=== PATIENT | male | born 1960 | race Caucasian/White ===

== ENCOUNTER 2020-03-22 11:59 | Emergency (ER) | payer OTHER, SELFPAY ==
[2020-03-22 13:07] VITALS: BP 146/73; PULSE 94; RESP 18; TEMP 36.9; O2SAT 96; BMI 34.0
--- NOTE | 2020-03-22 13:17 | CT_ITS ---
EXAMINATION: CT HEAD WITHOUT CONTRAST CT CERVICAL SPINE WITHOUT CONTRAST CLINICAL INFORMATION: Fall downstairs COMPARISON: None. TECHNIQUE: Multidetector CT imaging of the head and cervical spine was performed without the use of intravenous contrast. Multiplanar reformats are reviewed. DLP: 1266c mGy-cm. FINDINGS: There is no evidence of acute intracranial hemorrhage or territorial infarction. No abnormal mass effect or midline shift is seen. Pritchard to white matter differentiation is well preserved. No extra-axial fluid collections are identified. The ventricles are normal in size. There is no abnormal attenuation within the brain parenchyma. The osseous structures and soft tissues are normal. Mucus retention present within the bilateral maxillary sinuses. Atlantooccipital alignment is maintained. The vertebral bodies and posterior elements align normally. No acute fracture or subluxation. Vertebral body heights and intervertebral disc spaces are preserved. Small endplate ossified present from C5 through T1. In conjunction with uncovertebral hypertrophy, this leads to at least mild bilateral foraminal narrowing at C5-C6, to a greater extent C6-C7. The cervicomedullary junction and spinal cord are grossly unremarkable. The paraspinal soft tissues are unremarkable. The imaged lung apices are clear CT/CT head/brain wo con IMPRESSION: No acute intracranial pathology. No cervical spine fracture or subluxation.
--- NOTE | 2020-03-22 13:17 | CT_ITS ---
EXAMINATION: CT HEAD WITHOUT CONTRAST CT CERVICAL SPINE WITHOUT CONTRAST CLINICAL INFORMATION: Fall downstairs COMPARISON: None. TECHNIQUE: Multidetector CT imaging of the head and cervical spine was performed without the use of intravenous contrast. Multiplanar reformats are reviewed. DLP: 1266c mGy-cm. FINDINGS: There is no evidence of acute intracranial hemorrhage or territorial infarction. No abnormal mass effect or midline shift is seen. Pritchard to white matter differentiation is well preserved. No extra-axial fluid collections are identified. The ventricles are normal in size. There is no abnormal attenuation within the brain parenchyma. The osseous structures and soft tissues are normal. Mucus retention present within the bilateral maxillary sinuses. Atlantooccipital alignment is maintained. The vertebral bodies and posterior elements align normally. No acute fracture or subluxation. Vertebral body heights and intervertebral disc spaces are preserved. Small endplate ossified present from C5 through T1. In conjunction with uncovertebral hypertrophy, this leads to at least mild bilateral foraminal narrowing at C5-C6, to a greater extent C6-C7. The cervicomedullary junction and spinal cord are grossly unremarkable. The paraspinal soft tissues are unremarkable. The imaged lung apices are clear CT/CT cervical spine wo con IMPRESSION: No acute intracranial pathology. No cervical spine fracture or subluxation.
--- NOTE | 2020-03-22 13:18 | XR_ITS ---
EXAMINATION: XR KNEE, LEFT CLINICAL INFORMATION: Left knee fall COMPARISON: None TECHNIQUE: Four views of the left knee. FINDINGS: There are 2 screws with washers in place extending lateral to medial in the tibial plateau region. The hardware is intact without surrounding lucency. I do not see a residual fracture line There is mild arthrosis of the medial compartment manifested by marginal osteophytes. Trace joint effusion. No acute fracture. XR/XR knee LT 4V IMPRESSION: Postoperative changes. No acute fracture. Subtle joint effusion Mild arthrosis.
--- NOTE | 2020-03-22 14:32 | ED_ITS ---
HPI - Extremity Injury (Lower) General Chief Complaint: Extremity Problem Stated Complaint: Knee pain, fall Time Seen by Provider: 03/22/20 13:17 Source: patient Mode of arrival: ambulatory Limitations: no limitations History of Present Illness HPI Narrative: patient presents to the ED for left knee pain after falling down stairs while drinking. Patient states this occurred around 02:00. Patient states since incident denies any headache, dizziness, chest pain, shortness of breath, rectal bleeding, vomiting blood, abdominal pain, back pain, or swelling of lower extremity. Patient denied loss of consciousness. Related Data Previous Rx's Medication Instructions Recorded naproxen 500 mg PO BID PRN #20 tab 03/22/20 Allergies Allergy/AdvReac Type Severity Reaction Status Date / Time No Known Allergies Allergy Unverified 02/06/20 16:31 Review of Systems Review of Systems: Yes all other systems are reviewed and are negative Constitutional: Constitutional: Reports as per HPI and Reports no additional constitutional complaints Eyes: Eyes: Reports as per HPI and Reports no additional eye complaints ENT: Reports system reviewed and no additional complaints, except as documented and Reports as per HPI Cardiovascular: Cardiovascular: Reports as per HPI, Reports no additional cardiovascular complaints, Denies Abdominal Cramping after Meds and Denies Abdominal Distension Respiratory: Respiratory: Reports as per HPI, Reports no additional respiratory complaints, Denies no additional respiratory complaints and Denies change in phlegm color Gastrointestinal: Gastrointestinal: Reports as per HPI, Reports no additional gastrointestinal complaints, Denies abdominal pain, Denies belching and Denies melena Musculoskeletal: Musculoskeletal: Reports no additional musculoskeletal complaints and Reports as per HPI Comments: Left knee pain Neurologic: Reports system reviewed and no additional complaints, except as documented and Reports as per HPI Psychiatric: Psychiatric: Reports no additional psychiatric complaints and Reports as per HPI [facility] Social History Social History Advance Directives: Yes Advance Directives Information Provided: Yes Advance Directives on File: No Physical Exam Vital Signs: Vital Signs: Vital Signs Temp Pulse Resp BP Pulse Ox 03/22/20 13:07 98.4 F 94 18 146/73 H 96 Body Mass Index 34.0 Const: General: cooperative, healthy appearing, comfortable, no acute distress, well developed, alert, awake and Physically active Orientation/co nsciousness: oriented to person HENMT: Head: Yes normal to inspection, Yes No palpable skull fracture present, No normocephalic, Yes atraumatic, No abrasion, No Alaniz's sign, No contusion, No hematoma, No laceration, No occipital foramen tenderness, No palpable skull f racture, No raccoon eyes, No scalp tenderness and No periorbital ecchymosis Eyes: General: appearance normal, both eyes and all related structures Neck: Neck: Yes normal visual inspection, Yes full ROM, Yes no lymphadenopathy, Yes no meningeal signs and No tender Chest: Chest palpation & inspection: normal inspection of the chest, normal palpation of entire chest wall and no localized rib tenderness Resp: Effort & Inspection: normal respiratory effort and able to speak in complete sentences Cardio: Jugular venous distension: no JVD Heart sounds: S1 normal heart sound present and S2 normal heart sound present GI: Inspection: Yes normal to inspection, No abdominal wall ecchymosis, No Abdominal wall edema and No distended Palpation (GI): Soft to palpation, not firm, nontender, no guarding and not rigid : General: No CVA tenderness and Yes no CVA tenderness Back/Spine/Pelvis: Back: no CVA tenderness, No CVA tenderness and No back tenderness Skin: General skin exam: no rashes or lesions noted Trauma: no lacerations or abrasions Neuro: General: oriented to person, gait normal, no meningeal signs and CN's II-XI intact bilaterally Cranial nerves: Yes CN's II-XII intact bilaterally Extrem: Other: positive for left knee tenderness on palpation. Negative for any erythema, swelling, deformity. Right lower extremity is normal. Psych: Appearance: grossly normal, well kempt and not disheveled Course Course Course Narrative: Patient will have left lower extremity imaging and also head CT C-spine due to patient stating he was drinking and fell down the stairs. Reevaluation(s) Reevaluation #1: All imaging came back negative for any fractures or brain bleed. Patient is safe for discharge Time: 14:38 MDM - Extremity Injury (Lower) MDM Narrative Medical decision making narrative: knee contusion Discharge Plan Discharge Clinical Impression: Contusion of knee Patient Disposition: Elopement Instructions: Contusion in Adults (ED), Knee Pain (ED) Additional Instructions: return to the ED immediately for any swelling of knee, swelling of legs, chest pain, shortness of breath, abdominal pain, nausea, emesis redness, coughing up blood, headache, dizziness, rectal bleeding, bloody urine, vomiting blood, chest pain, shortness of breath, or any other concerning symptoms. Please follow-up with your PCP Prescriptions: New naproxen 500 mg tablet 500 mg PO BID PRN (Reason: pain) Qty: 20 RF: 0 Stand Alone Forms: Work/School Release Interventions: ED Discharge Assessment Last Done: 03/22/20 14:53 Discharge Date/Time: 03/22/20 14:54 Print Language: Australian
[2020-03-22] MEDS: Ketorolac Tromethamine 60 MG/2 ML VIAL IM (14:48)
== END 2020-03-22 14:54 | disposition left against medical advice (07) ==
PROVIDERS: Emergency Provider Emergency Medicine
DX: S80.02XA Contusion of left knee, initial encounter (principal); M25.562 Pain in left knee; M54.2 Cervicalgia; W10.9XXA Fall (on) (from) unspecified stairs and steps, initial encounter; Y93.9 Activity, unspecified; Y92.9 Unspecified place or not applicable; Y99.9 Unspecified external cause status
CPT/HCPCS: 70450; 72125; 73564; 96372; 99283; 99284; J1885

== ENCOUNTER 2020-03-23 12:57 | Outpatient (REF) | payer OTHER, SELFPAY ==
--- NOTE | 2020-03-23 13:01 | CT_ITS ---
EXAMINATION: CT CHEST SCREENING CLINICAL INFORMATION: Nicotine dependence. COMPARISON: CT chest 03/20/2019 TECHNIQUE: Multidetector volumetric CT imaging of the chest is performed without contrast using low dose technique. Additional 2D coronal and sagittal reformatted images and axial 3D maximum intensity projection (MIP) images are generated on the CT workstation. This CT examination was performed using dose optimization techniques as appropriate, variously including the following: *Automated exposure control *Adjustment of mA and/or kV according to patient size (this includes techniques or standardized protocols for targeted exams where dose is matched to indication/reason for exam; i.e. extremities or head) *Use of iterative reconstruction technique DLP: 60 mGy-cm FINDINGS: LUNGS: The lungs are well expanded and clear of acute pneumonic consolidation. There is a 2 mm nodule right upper lobe anterior segment, new. No additional nodules, mass or consolidation. No ground-glass density either. MEDIASTINUM: Heart size and the great vessels are normal caliber. Minimal atherosclerotic calcification of the thoracic arch is noted. Central trachea and the bronchi are widely patent. No abnormal size mediastinal or hilar lymph nodes seen. There are coronary artery calcifications present. PLEURA: There is no pleural effusion. No pleural mass or thickening. AXILLA: Small shotty lymph nodes are seen in the axilla. UPPER ABDOMEN: Visualized liver, spleen, pancreas, and bilateral adrenal glands are unremarkable. OSSEOUS STRUCTURES: No lytic or sclerotic process seen. CT/CT lung screening IMPRESSION: New 2 mm nodule right upper lobe anterior segment. ASSESSMENT: Lung-RADS category: 2 benign. RECOMMENDATION: Routine annual screening low-dose CT chest.
== END 2020-03-23 12:58 | disposition home or self-care (01) ==
LOC: HO.CT 12:57
PROVIDERS: Visit Provider Surgery
DX: Z12.2 Encounter for screening for malignant neoplasm of respiratory organs (principal); F17.210 Nicotine dependence, cigarettes, uncomplicated
CPT/HCPCS: 71250

== ENCOUNTER 2022-09-19 09:45 | Outpatient (REF) | payer OTHER, SELFPAY ==
--- NOTE | ~2022-09-19 | CT_ITS ---
EXAMINATION: CT CHEST SCREENING CLINICAL INFORMATION: Current smoker. 46 pack year history. COMPARISON: Previous chest CT most recent March 2020 TECHNIQUE: Multidetector volumetric CT imaging of the chest is performed without contrast using low dose technique. Additional 2D coronal and sagittal reformatted images and axial 3D maximum intensity projection (MIP) images are generated on the CT workstation. This CT examination was performed using dose optimization techniques as appropriate, variously including the following: *Automated exposure control *Adjustment of mA and/or kV according to patient size (this includes techniques or standardized protocols for targeted exams where dose is matched to indication/reason for exam; i.e. extremities or head) *Use of iterative reconstruction technique DLP: 93 mGy-cm FINDINGS: LUNGS: Mild emphysema. Increased peripheral attenuation and reticular changes in the medial right upper lobe adjacent to the mediastinum axial image 83 series 5. This is stable. Previously identified 2 mm anterior segment right upper lobe nodule not definitely appreciated. Secretions in the right mainstem bronchus. No endobronchial or endotracheal lesion. MEDIASTINUM: Small stable mediastinal lymph nodes. No enlarged lymph nodes. Normal heart size. No pericardial effusion. Normal caliber thoracic aorta. CORONARY ARTERY CALCIFICATION: Moderate PLEURA: There is no pleural effusion. No pleural mass or thickening. AXILLA: No lymphadenopathy. UPPER ABDOMEN: Unremarkable OSSEOUS STRUCTURES: Mild degenerative changes of the spine. CT/CT lung screening IMPRESSION: Emphysema. Stable increased peripheral or subpleural attenuation and reticular markings in the medial right upper lobe adjacent to the mediastinum. Previously identified 2 mm anterior right upper lobe nodule not appreciated. ASSESSMENT: Lung-RADS category 2: Benign RECOMMENDATION: Annual low-dose chest CT follow-up.
== END 2022-09-19 09:46 | disposition home or self-care (01) ==
LOC: HO.CT 09:45
PROVIDERS: Visit Provider Physician Assistant Medical
DX: Z12.2 Encounter for screening for malignant neoplasm of respiratory organs (principal); F17.210 Nicotine dependence, cigarettes, uncomplicated
CPT/HCPCS: 71271

== ENCOUNTER 2023-09-21 08:17 | Outpatient (REF) | payer OTHER, SELFPAY ==
[2023-09-21 11:34] LABS: MANUAL DIFF FLAG NO
[2023-09-21 11:39] LABS: Basophils Absolute Auto 0.1 X10*3/uL (0.0-0.2); Eosinophils Absolute Auto 0.4 X10*3/uL (0.0-0.4); Eosinophils Percent Auto 4.6 % (0-4); Hematocrit 44.8 % (42.0-52.0); Hemoglobin 14.3 g/dl (14.0-18.0); Imm Gran Abs Auto 0.02 X10*3/uL (0.00-0.03); Imm Gran Pct Auto 0.2 % (0.0-0.4); Lymphocytes Absolute Auto 3.2 X10*3/uL (1.2-4.9); Lymphocytes Percent Auto 38.4 % (20-40); Mean Corpuscular HGB Conc 31.9 g/dl (31.0-36.0); Mean Corpuscular Hemoglobin 29.5 pg (27.0-33.0); Mean Corpuscular Volume 92.4 fL (80.0-98.0); Mean Platelet Volume 12.3 fL (9.4-12.4); Monocytes Absolute Auto 0.6 X10*3/uL (0.1-1.2); Monocytes Percent Auto 7.8 % (2-11); Platelet Count 173 X10*3/uL (160-400); Red Blood Count 4.85 X10*6/uL (4.60-5.80); Red Cell Distribution Width 13.2 % (11.0-16.0); White Blood Count 8.2 X10*3/uL (4.8-10.8)
[2023-09-21 12:21] LABS: Alanine Aminotransferase 18 U/L (0-40); Alkaline Phosphatase 83 U/L (39-117); Anion Gap 13 (12-20); Aspartate Amino Transferase 18 U/L (5-37); Bilirubin Total 0.3 mg/dL (0.0-1.0); Blood Urea Nitrogen 11 mg/dL (9-16); Calcium 9.7 mg/dL (8.4-10.2); Carbon Dioxide 28 mmol/L (22-29); Chloride 106 mmol/L (96-108); Cholesterol 204 mg/dL (<200); Estimated Glomerular Filt Rate > 60; Glucose Random 101 mg/dL (60-115); HDL Cholesterol 32 mg/dL (>40); LDL Cholesterol Calculated 132 mg/dL (<100); Potassium 4.7 mmol/L (3.3-5.1); Sodium 142 mmol/L (135-145); Triglycerides 200 mg/dL (<150)
== END 2023-09-21 08:18 | disposition home or self-care (01) ==
LOC: HO.HHCL 08:17
PROVIDERS: Visit Provider Internal Medicine Geriatric Medicine
DX: R73.03 Prediabetes (principal); E78.00 Pure hypercholesterolemia, unspecified
CPT/HCPCS: 36415; 80053; 80061; 85025

== ENCOUNTER 2024-02-27 08:25 | Outpatient (REF) | payer OTHER, SELFPAY ==
[2024-02-27 12:19] LABS: Alanine Aminotransferase 18 U/L (0-40); Albumin Level 4.1 g/dL (3.5-5.0); Alkaline Phosphatase 82 U/L (39-117); Anion Gap 12 (12-20); Aspartate Amino Transferase 21 U/L (5-37); Bilirubin Total 0.3 mg/dL (0.0-1.0); Blood Urea Nitrogen 19 mg/dL (9-16); Carbon Dioxide 27 mmol/L (22-29); Chloride 108 mmol/L (96-108); Estimated Glomerular Filt Rate > 60; Glucose Random 109 mg/dL (60-115); Potassium 4.5 mmol/L (3.3-5.1); Sodium 142 mmol/L (135-145)
== END 2024-02-27 08:26 | disposition home or self-care (01) ==
LOC: HO.HHCL 08:25
PROVIDERS: Visit Provider Internal Medicine Geriatric Medicine
DX: R73.01 Impaired fasting glucose (principal)
CPT/HCPCS: 36415; 80053

== ENCOUNTER 2024-05-29 10:25 | Outpatient (AMB) | payer OTHER, SELFPAY ==
[2024-05-29 10:27] VITALS: BP 128/72; PULSE 80; O2SAT 96; BMI 28.6
--- NOTE | 2024-05-29 10:27 | MHC.OFFVIS ---
Vital Signs 05/29/24 10:27 Height 5 ft 9 in Weight 194 lb 0.108 oz BMI 28.6 BP 128/72 Blood Pressure Location Lt brachial Position Sitting Pulse 80 Pulse Source Pulse Oximeter Pulse Oximetry (%) 96 Oxygen Delivery Method Room Air Intake Visit Reasons: [place] scrn. R/S X1 Intake Note: NEW PATIENT Reason; [place] scrn Prior hx of colo/egd? w/ Dr. Rosen (2010) Concerns or questions? No significant concerns/questions. Transverse Abdominal Muscle Surgeon Required: Yes Transverse Abdominal Muscle Surgeon Services: Transverse Abdominal Muscle Surgeon Present Transverse Abdominal Muscle Surgeon Name: Darius Hennessy Information Interpreted: non-clinical & clinical Accompanied by: Self / Same As Patient Allergies No Known Allergies Allergy (Verified 05/29/24 10:28) HPI HPI [place] scrn. R/S X1: Details: 64 year old? male with past medical history of hyperlipidemia, nicotine dependence is here today for pre colonoscopy screening.? Patient was sent to us by his PCP.? Patient had colonoscopy in 2010, normal colonoscopy. However patient has a family history of CRC. Patient's mom was diagnosed with CRC.? Patient denies melena, hematochezia, unintentional weight loss or ribbon like stools. Patient denies any gastrointestinal symptoms in the past or at present.? ? Denies history of difficulty with sedation or anesthesia in the past.? Negative for history of sleep apnea.? Denies any history of cardiac, renal, pulmonary, or hepatic disease.?? No history of infectious? diseases like hepatitis A, B, C, HIV or tuberculosis.? Patient is not on any anticoagulation [facility] Medical History (Updated 05/29/24 @ 11:15 by Ciara Love, [facility]) Hyperlipidemia Nicotine dependence, cigarettes, uncomplicated Surgical History Hx of left knee surgery Hx of colonoscopy Family History Mother Alzheimer disease Colon cancer Social History Household Members: Spouse and Children Alcohol intake: current Alcohol intake frequency: a few times a week Patient Tobacco Use Status: Current everyday Tobacco user Tobacco use type: Cigarette Cigarettes Per Day: 10 Review of Systems Const Denies weight gain and Denies weight loss ENT Reports no additional complaints, Denies dysphagia and Denies odynophagia Card Reports no additional complaints Resp Reports no additional complaints GI Denies abdominal pain, Denies belching, Denies melena, Denies bloating, Denies change in bowel habits, Denies dysphagia, Denies excessive flatus, Denies dyspepsia, Denies heartburn, Denies diarrhea, Denies loose stools, Denies nausea, Denies odynophagia and Denies vomiting Reports no additional complaints Musc Reports no additional complaints Neuro Reports no additional complaints Psych Reports no additional complaints Endo Reports no additional complaints Physical Exam Vital Signs: Last Vital Signs Pulse 80 05/29/24 10:27 BP 128/72 05/29/24 10:27 Pulse Ox 96 05/29/24 10:27 Oxygen Delivery Method Room Air 05/29/24 10:27 BMI result Body Mass Index 28.6 Const General: healthy appearing, no acute distress and well developed Nutritional Appearance: well nourished Orientation/consciousness: patient oriented x3 Resp Effort & Inspection: normal respiratory effort, able to speak in complete sentences, no tracheal deviation and symmetric chest movement Auscultation: clear to auscultation bilaterally Cardio Rate: regular rate GI Inspection: Yes normal to inspection and No distended Palpation (GI): Soft to palpation, not firm, nontender and No hepatosplenomegaly present Auscultation: normal bowel sounds General: Yes no CVA tenderness Back/Spine/Pelvis Back: no CVA tenderness Skin General skin exam: elasticity normal, turgor normal and dry skin Neuro General: patient oriented x3 Psych Appearance: grossly normal Mental Status: mental status grossly normal Assessment & Plan Assessment & Plan (1) Screen for colon cancer: Code(s): Z12.11 - Encounter for screening for malignant neoplasm of colon Plan Patient denies any GI, cardiac or respiratory symptoms.? Denies any issues with anesthesia in the past.? Denies any history of sleep apnea.? No history infectious diseases in the past or present.? Not on any anticoagulation therapy.? Family history of CRC.? Patient denies melena, hematochezia, unintentional weight loss or ribbon like stools.? Discussed at length the pre-procedure,? prep, diet & medications as well as what to expect prior, during and after the procedure.?? Stressed the importance of good bowel prep.? Recommended the use of Vaseline or Calmoseptine OTC & baby wipes with bowel movements to promote comfort.? ?Patient verbalizes understanding and agrees to plan of care.? He was given the opportunity to ask questions and all questions answered.? We will see him after the procedure.? Medications: New bisacodyl (Dulcolax (bisacodyl)) take 4 tabs at noon the day before your colonoscopy 20 mg (4 x 5 mg) PO ONCE 1 day 4 tabs 0RF Z12.11 - Encounter for screening for malignant neoplasm of colon polyethylene glycol 3350 (Miralax) As directed by gastroenterology department at [facility] 238 grams PO ONCE 238 grams 0RF Z12.11 - Encounter for screening for malignant neoplasm of colon Coding Level of Care Code New Pt Level 3 (96097) Diagnoses Screen for colon cancer Z12.11 Time Spent (min) 40 Comment 30 minutes spent with patient and additional 10 minutes spent reviewing his records
== END 2024-05-29 12:49 | disposition home or self-care (01) ==
PROVIDERS: Visit Provider Nurse Practitioner Family
DX: Z01.818 Encounter for other preprocedural examination (principal); Z12.11 Encounter for screening for malignant neoplasm of colon; Z80.0 Family history of malignant neoplasm of digestive organs
CPT/HCPCS: 99202

== ENCOUNTER → 2024-05-29 10:25 | Outpatient (BNVA) | payer OTHER, SELFPAY | PROVIDERS: Visit Provider Nurse Practitioner Family | DX: Z12.11 Encounter for screening for malignant neoplasm of colon (principal) | CPT/HCPCS: 99202 ==

== ENCOUNTER 2024-06-18 08:09 | Outpatient (REF) | payer OTHER, SELFPAY ==
--- OUTSIDE RECORDS SUMMARY | 2024-06-18 08:16 | XMS_ITS | Clinical Summary ---
Author Organization [employer] Address [address] [place] [address] [address] [place] [address] Care Team Providers Care Radiology Scheduler Name Role Phone Name, Td CADE Primary Care Provider [phone] Allergies No known active allergies Medications mometasone (Elocon) 0.1 % ointment Apply topically Once per day. 45 g 1 4 10/11/19 25 Active atorvastatin (Lipitor) 20 MG tabletIndicatio ns:On statin therapy Take 1 tablet (20 mg) by mouth Once per day. 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 Encounters Date Type Department Care Team Description 05/17/2024 10:15 AM EST Office Visit [facility] [address] [place], [place] [phone] Name, MD Td Impaired fasting glucose (Primary Dx); On statin therapy; Healthcare maintenance; Tobacco use; Vaccination refused by patient 05/17/2024 Travel 05/14/2024 Telephone [facility] [address] [place], [place] [phone] Chanel Phillips MA Chart Prep from Last 3 Months Immunizations Name Administration Dates Next Due Hep A, Adult 09/18/2012 Hep B, adult 09/18/2012 INFLUENZA VACCINE QUADRIVALE NT RECOMBINANT PRESERVATIVE FREE RIV4 02/27/2020 Influenza, IIV3, injectable 04/01/2014 MMR 10/02/2012,10/02/2009 Pfizer Covid-19 Vaccine 12+ 07/21/2020 Pfizer Covid-19 Vaccine 12+ Bivalent 06/14/2022 Pneumococcal Conjugate PCV 20 08/23/2023 Pneumococcal Polysaccharide PPSV23 06/24/2009 TD (adult), 2 Lf tetanus tox oid, preservative free, adsorbed 11/12/2004 Tdap 08/23/2023,04/24/2013,09/18/2012 Zoster, Recombinant 03/08/2021,12/21/2020 Family History Medical History Relation Name Comments Colon cancer Mother Relation Name Status Comments Mother Social History Tobacco Use Types Packs/Day Years Used Date Smoking Tobacco: Every Day Cigarettes Passive Smoke Exposure: Current Smokeless Tobacco: Never Tobacco Cessation:Ready to Q uit: Not Asked; Counseling Given: Not Answered Alcohol Use Standard Drinks/Week Comments Yes 0 (1 standard drink = 0.6 oz pur e alcohol) social Depression Answer Date Recorded Patient Health Questionnaire-9 Score 0 09/27/2022 Housing Stability Answer Date Recorded What is your housing situation today? I have neeraj luna 09/29/[address] you li ve. Do you have problems with any of the following? None of the above 09/29/2023 Food Insecurity Answer Date Recorded Within the past 12 months, y ou worried that your food would run out before you got money to buy more: Never True 09/29/2023 Within the past 12 months,th e food you bought just didn't last and you didn't have enough money to get more: Never True 02/2024 Transportation Answer Date Recorded In the past 12 months, has l ack of transportation kept you from medical appts, meetings, work or from getting things needed for daily living? No 09/29/2023 Utilities Answer Date Recorded In the past 12 months, has t he electric, gas, oil or water company threatened to shut off services in your home? 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 file Not on hosea e Last Filed Vital Signs Vital Sign Reading Time Taken Comments Blood Pressure 139/82 05/17/2024 10:09 AM EST Pulse 90 05/17/2024 10:09 AM EST Temperature 36.9 ??C (98.4 ??F) 05/17/2024 10:[address] Respiratory Rate 18 05/17/2024 10:09 AM EST Oxygen Saturation 95% 02/06/2024 3:10 PM EDT Inhaled Oxygen Concentration - - Weight 85.9 kg (189 lb 6.4 oz) 05/17/2024 10:09 AM EST Height 167.6 cm (5' 6 ) 05/17/2024 10:09 AM EST Body Mass Index 30.57 05/17/2024 10:09 AM EST Plan of Treatment Health Maintenance Due Date Last Done Comments CT Colonography 1960 Colonoscopy 1960 Colorectal Cancer Screening 1960 FIT DNA/Cologuard 1960 FIT 1960 FOBT 1960 Sigmoidoscopy 1960 Alcohol/Substance Use Screening 1972 Hepatitis B Vaccines (2 of 3 - 19+ 3-dose series) 10/16/2012 09/18/2012 Diabetes: Hemoglobin A1C 11/26/2021 11/26/2020 Depression Screening 09/28/2023 09/27/2022, 09/28/19 23 COVID-19 Vaccine ( season) 2024 06/14/2022, 04/12/2021, 07/21/2020, Additional history exists Influenza Vaccine (#1) 2024 02/27/2020, 2013 SDOH Screening 09/28/2024 09/29/2023 Tobacco Screening 05/17/2025 05/17/2024 Lipid Panel 09/20/2028 09/21/2023, 03/0 06/2022, 11/26/2020 DTaP/Tdap/Td Vaccines (4 - Td or Tdap) 08/22/2033 08/23/2023, 04/24/2013, 09/18/2012, Additional history exists RSV Patients and Patients Aged 60 years or older (1 - 1-dose 75+ series) 2035 Hepatitis A Vaccines Aged Out 09/18/2012 No long er eligible based on patient's age to complete this topic HIV Screening Completed 11/26/2020 Hepatitis C Screening Completed 11/26/2020 Zoster Vaccines Completed 03/08/2021, 12/21/2020 Pneumococcal Vaccine: Pediatrics (0 to 5 Years) and At-Risk Patients (6 to 64 Years) Completed 08/23/2023, 06/24/2009 HIB Vaccines Aged Out No longer eligi ble based on patient's age to complete this topic HPV Vaccines Aged Out No longer eligi ble based on patient's age to complete this topic IPV Vaccines Aged Out No longer eligi ble based on patient's age to complete this topic Meningococcal Vaccine Aged Out No shelby matt eligible based on patient's age to complete this topic RSV under 20 months Aged Out No longe r eligible based on patient's age to complete this topic Rotavirus Vaccines Aged Out No longer eligible based on patient's age to complete this topic Procedures Procedure Name Priority Date/Time Associated Diagnosis Comments POCT GLUCOSE Routine 05/17/2024 10:18 AM EST Impaired fasting glucose LIPID PANEL, STANDARD Routine 09/21/2023 8:19 AM EDT Prediabetes High cholesterol ZZZ HISTORICAL HEPATITIS C AB W/REFL TO HCV RNA, QN, PCR Routine 11/26/2020 3:44 PM EDT HIV 1/2 ANTIGEN/ANTIBODY, FOURTH GENERATION W/RFL Routine 11/26/2020 3:44 PM EDT HEMOGLOBIN A1C Routine 11/26/2020 3:44 PM EDT from Last 3 Months or Most Recently Relevant to Health Maintenance Results * POCT Glucose (05/17/2024 10:18 AM EST) Glucose Blood, POC 104 60 - 200 mg/dL [employer] Media Lot # [id number] Lot# Expiration Date 168 Blood Capillary blood specimen / Unknown 05/17/2024 10:18 AM EST us Td Bautista MD POINT OF CARE TEST ENTER/EDIT OR DERABLES Final Result * (ABNORMAL) Lipid Panel, Standard (09/21/2023 8:19 AM EDT) Pathologist [facility] Triglycerides 200(H) <150 mg/dL [facility] Comment:Desirable Triglyceri de: less than 150 mg/dLBorderline High Triglyceride 150-199 mg/dLHigh Triglyceride: 200-499 mg/dLVery High Triglyceride: greater than or equal to 5OO mg/dL Cholesterol 204(H) <200 mg/dL [facility] Comment:Desirable Cholestero l: less than 200 mg/dLBorderline High Cholesterol: 200-239 mg/dLHigh Cholesterol: greater than 239 mg/dL LDL Cholesterol Calculated 132(H) <100 mg/dL [facility] Comment:Desirable LDL: less than 100 mg/dLNear Optimal/Above Optimal LDL: 110- 129 mg/dLBorderline High LDL: 130-159 mg/dLHigh LDL: 160-189 mg/dLVery High LDL: greater than or equal to 190 mg/dL HDL Cholesterol 32(L) >40 mg/dL [facility] Comment:Desirable HDL: great er than 40 mg/dL Note: This HDL assay may give artificially low results in patients with liver disease. Blood Venous blood specimen / Unknown 09/21/2023 8:19 AM EDT 09/21/2023 11:34 AM EDT us Td Bautista MD LAB BLOOD ORDERABLES Final Resul t [facility] [address] [place] [phone] * HEPATITIS C AB W/REFL TO HCV RNA, QN, PCR (11/26/2020 3:44 PM EDT) HEPATITIS C ANTIBODY NON-REACT ALYSSA NON-REACT ALYSSA [facility] INDEX 0.01 <1.00 [facility] Comment: ?? HCV antibody was non-reactive. There is no laboratory ?? evidence of HCV infection. ?? In most cases, no further action is required. However, if recent HCV exposure is suspected, a test for HCV RNA (test code 66102) is suggested. ?? For additional information please refer to http://[employer]/faq/FLB41x8 (This link is being provided for informational/ educational purposes only.) ?? 11/26/2020 3:44 PM EDT Taina Petersen MD HISTORICAL/NON ORDERABLE LABS Final Result Performing Organization Address City/State/[facility] Co de Phone Number [facility] [address] [place] [address], * HIV 1/2 ANTIGEN/ANTIBODY,FOURTH GENERATION W/RFL (11/26/2020 3:44 PM EDT) HIV-1/2 ANTIGEN AND ANTIBODIES, 4TH GENERATION W/ REFLEX NON-REACT ALYSSA NON-REACT ALYSSA [facility] Comment: HIV-1 antigen and HIV-1/HIV-2 antibodies were not detected. There is no laboratory evidence of HIV infection. ?? PLEASE NOTE: This information has been disclosed to you from records whose confidentiality may be protected by state law. ??If your state requires such protection, then the state law prohibits you from making any further disclosure of the information without the specific written consent of the person to whom it pertains, or as otherwise permitted by law. A general authorization for the release of medical or other information is NOT sufficient for this purpose. ? For additional information please refer to http://[employer]s/faq/RAP432 (This link is being provided for informational/ educational purposes only.) ? The performance of this assay has not been clinically validated in patients less than 2 years old. ?? 11/26/2020 3:44 PM EDT us Taina Petersen MD LAB BLOOD ORDERABLES Final Re sult Performing Organization Address [facility] Co de Phone Number [facility] [address] * (ABNORMAL) HEMOGLOBIN A1c (11/26/2020 3:44 PM EDT) Hemoglobin A1c 5.7(H) <5.7 % of total Hgb [facility] Comment: For someone without known diabetes, a hemoglobin ?? A1c value between 5.7% and 6.4% is consistent with prediabetes and should be confirmed with a ?? follow-up test. ?? For someone with known diabetes, a value <7% indicates that their diabetes is well controlled. A1c targets should be individualized based on duration of diabetes, age, comorbid conditions, and other considerations. ?? This assay result is consistent with an increased risk of diabetes. ?? Currently, no consensus exists regarding use of hemoglobin A1c for diagnosis of diabetes for children. ?? 11/26/2020 3:44 PM EDT Taina Petersen MD LAB BLOOD ORDERABLES Final Re sult Performing Organization Address [facility] de Phone Number [facility] [address] from Last 3 Months or Most Recently Relevant to Health Maintenance Insurance Care Teams Radiology Scheduler Relationship Specialty Start Date End Date Name, MD Td [address] [place] [id number] PCP - General Family Medicine 01/19/22
--- OUTSIDE RECORDS SUMMARY | 2024-06-18 08:16 | XMS_ITS | Encounter Summary ---
Author Organization [employer] Address [address] [place] [address] 7[address] [place] [address] Care Team Providers Care Manager General Name Role Phone Name, Td CADE Primary Care Provider [phone] Encounter Details Date Type Department Care Team ([facility] st Contact Info) Description 10/18/2022 Abstract [employer] Information [employer] [address] [place], [place] [phone] Name, MD Td [address] [place] [address] Social History Tobacco Use Types Packs/Day Years Used Date Smoking Tobacco: Every Day Cigarettes Passive Smoke Exposure: Current Smokeless Tobacco: Never Alcohol Use Standard Drinks/Week Comments Not Currently 0 (1 standard drink = 0.6 oz pur e alcohol) Depression Answer Date Recorded Patient Health Questionnaire-9 Score 0 09/27/2022 Depression Answer Date Recorded Patient Health Questionnaire-2 Score 0 09/27/2022 Sex and Gender Information Value Date Recorded Sex Assigned at Male 03/21/2022 10:15 AM EDT Legal Sex Male 10:15 AM EDT Gender Identity Male 03/21/2022 10:15 AM EDT Sexual Orientation Straight 03/21/2022 10 :15 AM EDT 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 No / Unsure 09/27/2022 10:08 AM EDT documented as of this encounter Plan of Treatment Not on file documented as of this encounter Visit Diagnoses Not on filedocumented in this encounter Additional Health Concerns Assessment Noted Time PHQ-9 Depression Total Score: 0 09/28/19 23 10:17 AM EDT documented as of this encounter Care Teams Manager General Relationship Specialty Start Date End Date Name, MD Td [address] [place] [address] PCP - General Family Medicine 01/19/22 documented as of this encounter
[2024-06-18 11:41] LABS: Cholesterol 155 mg/dL (<200); HDL Cholesterol 31 mg/dL (>40); LDL Cholesterol Calculated 91 mg/dL (<100); Triglycerides 168 mg/dL (<150)
== END 2024-06-18 08:10 | disposition home or self-care (01) ==
LOC: HO.HHCL 08:09
PROVIDERS: Visit Provider Internal Medicine Geriatric Medicine
DX: Z79.899 Other long term (current) drug therapy (principal)
CPT/HCPCS: 36415; 80061

== ENCOUNTER 2024-10-02 15:23 | Outpatient (REF) | payer OTHER, SELFPAY ==
--- NOTE | ~2024-10-02 | XR_ITS ---
EXAMINATION: XR SHOULDER, RIGHT CLINICAL INFORMATION: Shoulder pain for a month on and off. No history of trauma COMPARISON: None available. TECHNIQUE: AP external rotation, Grashey, scapular Y, and axillary views of the right shoulder. FINDINGS: Normal bone mineralization. No fracture, dislocation, or suspicious bone lesion. Normal alignment. The glenohumeral joint demonstrate early arthritic changes. The AC joint demonstrates early arthritic changes with predominantly superior surface spurs. There is a type II acromion. No undersurface spurring. The subacromial space is preserved. Remainder of the soft tissue and bony structures appear normal. XR/XR shoulder RT min 2V IMPRESSION: 1. No acute bony abnormality. 2. 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 Electronically signed by: Todd Balbuena MD 10/03/2024 08:52 AM EDT
--- NOTE | ~2024-10-02 | XR_ITS ---
EXAMINATION: XR CERVICAL SPINE CLINICAL INFORMATION: NECK PAIN, right sided with radiation to the hand and right shoulder. COMPARISON: CT C-spine 03/22/2020. Plain films of C-spine 07/24/2017. TECHNIQUE: 3 views of the cervical spine were obtained. FINDINGS: There is a minimal levoconvex scoliosis, possibly positional. There is a normal lordosis. The C7-T1 interspace is somewhat obscured by the patient's shoulder. There is no subluxation. There is no compression deformity, fracture, or evidence of subluxation. Normal facet alignment bilaterally with mild degenerative facet changes left greater than right. Mild degenerative disc changes present most notable C5-6 and C6-7. No prevertebral or paravertebral soft tissue abnormality. Lung apices clear. XR/XR cervical spine 3V IMPRESSION: Mild to moderate cervical spondylosis. No acute bony abnormalities. Electronically signed by: Todd Balbuena MD 10/03/2024 08:57 AM EDT
--- OUTSIDE RECORDS SUMMARY | 2024-10-02 15:26 | XMS_ITS | Encounter Summary ---
Author Organization [employer] Address [address] [facility] [address] [place] [address] Care Team Providers Care Lumber Scaler Name Role Phone Name, Td CADE Primary Care Provider [phone] Reason for Visit * Reason Onset Date Comments Chart Prep 10/01/2024 Encounter Details Date Type Department Care Team ([facility] st Contact Info) Description 10/01/2024 Telephone [facility] [address] [place] [address] Name, MD Td [address] [place] [address] Chart Prep Social History Tobacco Use Types Packs/Day Years Used Date Smoking Tobacco: Every Day Cigarettes Passive Smoke Exposure: Current Smokeless Tobacco: Never Alcohol Use Standard Drinks/Week Comments Yes 0 (1 standard drink = 0.6 oz pur e alcohol) social Depression Answer Date Recorded Patient Health Questionnaire-9 Score 2 10/02/2024 Patient Health Questionnaire-9 Score 2 10/02/2024 Last PHQ-9: Questionnaire Data Not on file 0 10/02/2024 Housing Stability Answer Date Recorded What is your housing situation today? I have neeraj luna 10/02/[address] you li ve. Do you have problems with any of the following? None of the above 10/02/2024 Food Insecurity Answer Date Recorded Within the past 12 months, y ou worried that your food would run out before you got money to buy more: Never True 10/02/2024 Within the past 12 months,th e food you bought just didn't last and you didn't have enough money to get more: Never True Transportation Answer Date Recorded In the past 12 months, has l ack of transportation kept you from medical appts, meetings, work or from getting things needed for daily living? No 10/02/2024 Utilities Answer Date Recorded In the past 12 months, has t he electric, gas, oil or water company threatened to shut off services in your home? 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 file Not on hosea e documented as of this encounter Miscellaneous Notes * Telephone Encounter - Jossie Mulligan MA - 10/01/2024 12:49 PM EDT Chart Prep Labs: done Images: not applicable Referrals: not applicable Vaccines due: Covid, Flu, and Hep B Screenings: colonoscopy Overdue care gaps: SBIRT, SDOH, PHQ-9, JAYDE-7, Oral health screening, and Disability screen documented in this encounter Plan of Treatment Not on file documented as of this encounter Visit Diagnoses Not on filedocumented in this encounter Additional Health Concerns Assessment Noted Time PHQ-9 Depression Total Score: 0 09/28/19 23 10:17 AM EDT documented as of this encounter Care Teams Lumber Scaler Relationship Specialty Start Date End Date Name, MD Td [address] [place] [address] PCP - General Family Medicine 01/19/22 documented as of this encounter
--- OUTSIDE RECORDS SUMMARY | 2024-10-02 15:26 | XMS_ITS | Encounter Summary ---
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 Question Answer Date of Assessment Author Patient Health Questionnaire-2 Score 0 10/02/2024 11:52 AM Osmany Laura MA * Little interest or pleasure in doing things Answer Date of Assessment Author Not at all 10/02/2024 11:52 AM Pratibha Laura MA * Feeling down, depressed, or hopeless Answer Date of Assessment Author Not at all 10/02/2024 11:52 AM Pratibha Laura MA * Trouble falling or staying asleep, or sleeping too much Answer Date of Assessment Author Several days 10/02/2024 11:52 AM Pratibha Laura MA * Feeling tired or having little energy Answer Date of Assessment Author Several days 10/02/2024 11:52 AM Pratibha Laura MA * Poor appetite or overeating Answer Date of Assessment Author Not at all 10/02/2024 11:52 AM Pratibha Laura MA * Feeling bad about yourself - or that you are a failure or have let yourself or your family down Answer Date of Assessment Author Not at all 10/02/2024 11:52 AM Pratibha Laura MA * Trouble concentrating on things, such as reading the newspaper or watching television Answer Date of Assessment Author Not at all 10/02/2024 11:52 AM Pratibha Laura MA * Moving or speaking so slowly that other people could have noticed? Or the opposite - being so fidgety or restless that you have been moving around a lot more than usual. Answer Date of Assessment Author Not at all 10/02/2024 11:52 AM Pratibha Laura MA * Thoughts that you would be better off or hurting yourself in some way Answer Date of Assessment Author Not at all 10/02/2024 11:52 AM Pratibha Laura MA * Patient Health Questionnaire-9 Score Answer Date of Assessment Author 2 10/02/2024 11:52 AM Pratibha Laura MA * How difficult have these problems made it for you to do your work, take care of things at home, or get along with other people? Answer Date of Assessment Author Not difficult at all 10/02/2024 11:52 AM Pratibha Patel MA * Over the last 2 weeks, how often have you been bothered by any of the following problems? Question Answer Date of Assessment Author Feeling nervous, anxious, or on edge 0 10/02/2024 11:52 AM Claire Laura MA Not being able to stop or control worrying 0 10/02/2024 11:52 AM Claire Laura MA Worrying too much about different things 0 10/02/2024 11:52 AM Claire Laura MA Trouble relaxing 0 10/02/2024 11:52 AM Pratibha Laura MA Being so restless that it is hard to sit still 0 10/02/2024 11:52 AM Claire Laura MA Becoming easily annoyed or irritable 0 10/02/2024 11:52 AM Claire Laura MA Feeling afraid as if something awful might happen 0 10/02/2024 11:52 AM Pratibha Tee MA JAYDE-7 Total Score 0 10/02/2024 11:52 AM Pratibha Laura MA documented as of this encounter Plan of Treatment Not on file documented as of this encounter Visit Diagnoses Not on filedocumented in this encounter Additional Health Concerns Assessment Noted Time PHQ-9 Depression Total Score: 2 10/03/19 25 11:52 AM EDT documented as of this encounter Care Teams Store Assistant Relationship Specialty Start Date End Date Name, MD Td [address] [place] [address] PCP - General Family Medicine 01/19/22 documented as of this encounter
--- OUTSIDE RECORDS SUMMARY | 2024-10-02 15:26 | XMS_ITS | Encounter Summary ---
Author Organization [employer] Address [address] [facility] 7t [place] [address] Care Team Providers Care Road Design Draftsperson Name Role Phone Name, Td CADE Primary Care Provider [phone] Reason for Visit * Reason Comments Follow-up Encounter Details Date Type Department Care Team ([facility] st Contact Info) Description 10/02/2024 11:00 AM EDT Office Visit [facility] [address] [place] [address] Name, MD Td [address] [place] [address] Neck pain, chronic (Primary Dx); Chronic right shoulder pain; Arm pain, superior, right; High cholesterol; Tobacco use Social History Tobacco Use Types Packs/Day Years [...] Industry Job Start Date Job End Date [employer] Not on file Not on 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 file Not on file Not on hosea e documented as of this encounter Last Filed Vital Signs Vital Sign Reading Time Taken Comments Blood Pressure 135/76 10/02/2024 11:11 AM EDT Pulse 82 10/02/2024 11:11 AM EDT Temperature 36.7 ??C (98 ??F) 10/02/2024 11:11 AM EDT Respiratory Rate 14 10/02/2024 11:11 AM EDT Oxygen Saturation 94% 10/02/2024 11:11 AM EDT Inhaled Oxygen Concentration - - Weight 85.5 kg (188 lb 9.6 oz) 10/02/2024 11:11 AM EDT Height 172.7 cm (5' 8 ) 10/02/2024 11:11 AM EDT Body Mass Index 28.68 10/02/2024 11:11 AM EDT documented in this encounter Functional Status * Over the past 2 weeks, how often have you been bothered by any of the following problems? Question Answer Date of Assessment Author Patient Health Questionnaire-2 Score 0 10/02/2024 11:52 AM EDT Osmany Mckeon MA * Little interest or pleasure in [...] or on edge 0 10/02/2024 11:52 AM EDT Claire Mckeon MA Not being able to stop or control worrying 0 10/02/2024 11:52 AM EDT Claire Mckeon MA Worrying too much about different things 0 10/02/2024 11:52 AM EDT Claire Mckeon MA Trouble relaxing 0 10/02/2024 11:52 AM EDT Pratibha Mckeon MA Being so restless that it is hard to sit still 0 10/02/2024 11:52 AM FAHADT Claire Mckeon MA Becoming easily annoyed or irritable 0 10/02/2024 11:52 AM EDT Claire Mckeon MA Feeling afraid as if something awful might happen 0 10/02/2024 11:52 AM EDT Pratibha Rodriguez MA JAYDE-7 Total Score 0 10/02/2024 11:52 AM EDT Pratibha Mckeon MA documented as of this encounter Progress Notes * Td Bautista MD - 10/02/2024 11:00 AM EDT Images from the original note were not included. Subjective Patient ID: Jos Bosch is a 64 y.o. male who presents for Follow-up. Patient comes for a follow-up visit. He is complaining of about a month of pain. Pain is located inthe right neck and right shoulder area. He describes some radiation of the pain to the upper right arm and right occipital head. He does not have any arm weakness. No history of trauma. No limitation in the range of motion of the right shoulder. 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 He tells me he feels the pain mostly when he is at rest at home. He continues smoking cigarettes but is trying to cut down. He has not gone for the low radiation CTscan of the chest yet. He saw GI and has upcoming appointment for colonoscopy. Recent blood work shows significant improvement of his cholesterol since he started using his atorvastatin regularly. Review of Systems Constitutional: Negative for chills, fatigue and fever. HENT: Negative for sore throat. Respiratory: Negative for cough, chest tightness and shortness of breath. Cardiovascular: Negative for chest pain, palpitations and leg swelling. Gastrointestinal: Negative for abdominal pain and blood in stool. Musculoskeletal: See HPI Visit Vitals BP 135/76 (BP Location: Left arm, Patient Position: Sitting, BP Cuff Size: Adult) Pulse 82 Temp 98 ??F (36.7 ??C) (Temporal) Resp 14 Ht 5' 8 (1.727 m) Wt 188 lb 9.6 oz (85.5 kg) SpO2 94% BMI 28.68 kg/m?? Smoking Status Every Day BSA 2.03 m?? Objective Physical Exam Constitutional: Appearance: Normal appearance. Cardiovascular: Rate and Rhythm: Normal rate and regular rhythm. Heart sounds: No murmur heard. Pulmonary: Effort: Pulmonary effort is normal. No respiratory distress. Breath sounds: No wheezing, rhonchi or rales. Abdominal: Palpations: Abdomen is soft. Tenderness: There is no abdominal tenderness. Musculoskeletal: Right lower leg: No edema. Left lower leg: No edema. Comments: No swelling of the right shoulder. He did not have any pain with rotation or flexion of the neck. He described mild discomfort when raising the right arm above the head. Range of motion of the right shoulder was normal. Neurological: Mental Status: He is alert. ntains abnormal data Lipid Panel, Standard Order: [id number] Status: Final result Dx: On statin therapy Test Result Released: No (inaccessible in [facility]) 0 Result Notes View Follow-Up Encounter 1 Topic Component Ref Range & Units (hover) 3 mo ago 1 yr ago 2 yr ago 3 yr ago Triglycerides 168 High 200 High CM 198 High 432 High CM Comment: Desirable Triglyceride: less than 150 mg/dLBorderline High Triglyceride 150-199 mg/dLHigh Triglyceride: 200-499 mg/dLVery High Triglyceride: greater than or equal to 5OO mg/dL Cholesterol 155 204 High CM Comment: Desirable Cholesterol: less than 200 mg/dLBorderline High Cholesterol: 200-239 mg/dLHigh Cholesterol: greater than 239 mg/dL LDL Cholesterol Calculated 91 132 High CM Comment: Desirable LDL: less than 100 mg/dLNear Optimal/Above Optimal LDL: 110- 129 mg/dLBorderline High LDL: 130-159 mg/dLHigh LDL: 160-189 mg/dLVery High LDL: greater than or equal to 190 mg/dL HDL Cholesterol 31 Low 32 Low CM 33 Low R 28 Low R Comment: Desirable HDL: greater than 40 mg/dL Note: This HDL ass 0 Result Notes Component Ref Range & Units (hover) 7 mo ago 1 yr ago 2 yr ago 3 yr ago Sodium 142 142 140 R Potassium 4.5 4.7 5.1 R Chloride 108 106 105 R Carbon Dioxide 27 28 29 R Anion Gap 12 13 Urea Nitrogen (BUN) 19 High 11 20 R 24 R Creatinine, Serum 0.87 0.86 1.00 R Estimated Glomerular Filt Rate >60 >60 CM Comment: NOTE: For -[place] individuals, multiply the result by 1.210.Chronic Kidney Disease: Estimated GFR < 60 mL/min/[id number] Kidney Disease: Estimated GFR < 15 mL/min/1.73m2 Glucose 109 101 109 High R, CM Calcium 9.0 9.7 9.5 R Bilirubin, Total 0.3 0.3 0.3 R Aspartate Amino Transferase 21 18 16 R Alanine Aminotransferase 18 18 15 R 17 R Total Protein 7.0 7.0 Albumin Level 4.1 4.0 Alkaline Phosphatase 82 83 Lab Results Component Value Date WBC 8.2 09/21/2023 HGB 14.3 09/21/2023 HCT 44.8 09/21/2023 MCV 92.4 09/21/2023 PLT 173 09/21/2023 Assessment/Plan Diagnoses and all orders for this visit: Neck pain, chronic Comments: My differential is pain related to cervical spine DJD or related to right shoulder pathology like DJD or some form of tendinitis. I recommended evaluation with x-rays of the affected area. Trial of Celebrex as needed. I suggested physical therapy but he does not have the time. Further recommendation based on the results and response to the medication. Orders: - celecoxib (CeleBREX) 200 MG capsule; Take 1 capsule (200 mg) by mouth if needed in the morning and at bedtime for mild pain or moderate pain for up to 20 days. - XR CERVICAL SPINE 3V; Future Chronic right shoulder pain - celecoxib (CeleBREX) 200 MG capsule; Take 1 capsule (200 mg) by mouth if needed in the morning and at bedtime for mild pain or moderate pain for up to 20 days. - XR Shoulder 2+ Views Right; Future Arm pain, superior, right - celecoxib (CeleBREX) 200 MG capsule; Take 1 capsule (200 mg) by mouth if needed in the morning and at bedtime for mild pain or moderate pain for up to 20 days. High cholesterol Comments: Continue statin. Tobacco use Comments: He is recommended to continue his efforts to quit smoking. He is encouraged to reschedule his appointment for low radiation CT scan of the chest. documented in this encounter Plan of Treatment Scheduled Orders Name Type Priority Associated Diagnoses Orde r Schedule XR CERVICAL SPINE 3V Imaging Routine Neck pain, chronic Expected: 10/02/2024, Expires: 10/02/2025 XR Shoulder 2+ Views Right Imaging Routine Chronic right shoulder pain Expected: 10/02/2024, Expires: 10/02/2025 documented as of this encounter Visit Diagnoses Diagnosis Neck pain, chronic- Primary Chronic right shoulder pain Pain in joint, shoulder region Arm pain, superior, right High cholesterol Pure hypercholesterolemia Tobacco use documented in this encounter Additional Health Concerns Assessment Noted Time PHQ-9 Depression Total Score: 2 10/03/19 25 11:52 AM EDT documented as of this encounter Care Teams Road Design Draftsperson Relationship Specialty Start Date End Date NameTd MD [address] [place] [address] PCP - General Family Medicine 01/19/22 documented as of this encounter
--- OUTSIDE RECORDS SUMMARY | 2024-10-02 15:26 | XMS_ITS | Clinical Summary ---
Author Organization [employer] Address [address] [facility] 7t [place] [address] Care Team Providers Care Justice [employer] Peace Name Role Phone Name, Td CADE Primary Care Provider [phone] Allergies No known active allergies Medications mometasone (Elocon) 0.1 % ointment Apply topically Once per day. 45 g 1 4 10/11/19 25 Active atorvastatin (Lipitor) 20 MG tabletIndicatio ns:On statin therapy Take 1 tablet (20 mg) by mouth Once per day. 30 tablet 11 4 05/17/20 25 Active acetaminophen (Tylenol) 500 MG tablet Take 2 tablets (1,000 mg) by mouth every 6 (six) hours if needed for moderate pain or fever for up to 40 doses. 50 tablet 5 Active nicotine polacrilex (Commit) 2 MG lozenge Dissolve 1 lozenge (2 mg) in the mouth if needed for smoking cessation. 100 each 5 Active nicotine (Nicoderm CQ) 7 MG/24HR patch Place 1 patch on the skin 1 (one) time each day at the same time. 14 patch 5 Active nicotine (Nicoderm CQ) 14 MG/24HR patch Place 1 patch on the skin 1 (one) time each day at the same time. 42 patch 5 Active celecoxib (CeleBREX) 200 MG capsuleIndicati ons:Neck pain, chronic,Chronic right shoulder pain,Arm pain, superior, right Take 1 capsule (200 mg) by mouth if needed in the morning and at bedtime for mild pain or moderate pain for up to 20 days. 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 Encounters Date Type Department Care Team Description 10/02/2024 11:00 AM EDT Office Visit [facility] MED[facility] [address] [place] [phone] Td Bautista MD Neck pain, chronic (Primary Dx); Chronic right shoulder pain; Arm pain, superior, right; High cholesterol; Tobacco use 10/02/2024 Travel 10/01/2024 Telephone [facility] MED[facility]INE [address] [place] [phone] Td Bautista MD Chart Prep 07/09/2024 9:20 AM EST Office Visit [facility] [address] [place] [phone] Saulo Duffy MD Influenza-like symptoms (Primary Dx); Tobacco dependence; Viral URI from Last 3 Months Immunizations Immunization Administration Dates Next Due Hep A, Adult [...] Industry Job Start Date Job End Date [employer] Not on file Not on file Not [...] Mass Index 28.68 10/02/2024 11:11 AM EDT Plan of Treatment Health Maintenance Due Date Last Done Comments CT Colonography 1960 Colonoscopy 1960 Colorectal Cancer Screening 1960 FIT DNA/Cologuard 1960 FIT 1960 FOBT 1960 Sigmoidoscopy 1960 Hepatitis B Vaccines (2 of 3 - 19+ 3-dose series) 10/16/2012 09/18/2012 COVID-19 Vaccine ( season) 2024 06/14/2022, 04/12/2021, 07/21/2020, Additional history exists Influenza Vaccine (#1) 2024 02/27/2020, 2013 Alcohol/Substance Use Screening 10/02/2025 10/02/2024 Depression Screening 10/02/2025 10/02/2024, 10/03/19 25 SDOH Screening 10/02/2025 10/02/2024 Tobacco Screening 10/02/2025 10/02/2024 Lipid Panel 06/18/2029 06/18/2024, 05/0 06/2023, 07/21/2022, Additional history exists DTaP/Tdap/Td Vaccines (4 - Td or Tdap) 08/22/2033 08/23/2023, 04/24/2013, 09/18/2012, Additional history exists RSV Patients and Patients Aged 60 years or older (1 - 1-dose 75+ series) 2035 Hepatitis A Vaccines Aged Out 09/18/2012 No long er eligible based on patient's age to complete this topic HIV Screening Completed 11/26/2020 Hepatitis C Screening Completed 11/26/2020 Zoster Vaccines Completed 03/08/2021, 12/21/2020 Pneumococcal Vaccine: 50+ Years Completed 08/23/2023, 06/24/2009 HIB Vaccines Aged Out No longer eligi ble based on patient's age to complete this topic HPV Vaccines Aged Out No longer eligi ble based on patient's age to complete this topic IPV Vaccines Aged Out No longer eligi ble based on patient's age to complete this topic Meningococcal B Vaccine Aged Out No l onger eligible based on patient's age to complete [...] Name Priority Date/Time Associated Diagnosis Comments POCT INFLUENZA B (ID NOW RAPID MOLECULAR) Routine 07/09/2024 9:10 AM EST Viral URI POCT INFLUENZA A (ID NOW RAPID MOLECULAR) Routine 07/09/2024 9:10 AM EST Viral URI POCT RAPID STREP A Routine 07/09/2024 9: 10 AM EST Viral URI POCT RAPID COVID ANTIGEN Routine 07/09/2024 9:10 AM EST Viral URI LIPID PANEL, STANDARD Routine 06/18/2024 8:11 AM EST On statin therapy ZZZ HISTORICAL HEPATITIS C AB W/REFL TO HCV RNA, QN, PCR Routine 11/26/2020 3:44 PM EDT HIV 1/2 ANTIGEN/ANTIBODY, FOURTH GENERATION W/RFL Routine 11/26/2020 3:44 PM EDT from Last 3 Months or Most Recently Relevant to Health Maintenance Results * Influenza B (ID NOW Rapid Molecular) (07/09/2024 9:10 AM EST) Influenza B Negative Negative, Indeterminate [facility] Swab 07/09/2024 9:10 AM EST us Saulo Duffy MD POINT OF CARE TEST ENTER/EDIT OR DERABLES Final Result Performing Organization Address [facility] de Phone Number [facility] [address] [place] [phone] * Influenza A (ID NOW Rapid Molecular) (07/09/2024 9:10 AM EST) [facility] Influenza A Negative Negative, Indeterminate [facility] Swab 07/09/2024 9:10 AM EST us Saulo Duffy MD POINT OF CARE TEST ENTER/EDIT OR DERABLES Final Result Performing Organization Address [facility] Number [facility] [address] [place] [phone] * POCT Rapid COVID Ag (07/09/2024 9:10 AM EST) [facility] Rapid COVID Ag Negative [facility] Swab 07/09/2024 9:10 AM EST us Saulo Duffy MD POINT OF CARE TEST ENTER/EDIT OR DERABLES Final Result Performing Organization Address [facility] Phone Number [facility] [address] [place] [phone] * POCT rapid strep A manually resulted (07/09/2024 9:10 AM EST) [facility] Rapid Strep A Screen Negative Negative, None Detected [facility] Swab 07/09/2024 9:10 AM EST us Saulo Duffy MD POINT OF CARE TEST ENTER/EDIT OR DERABLES Final Result Performing Organization Address [facility] Number [facility] [address] [place] [phone] * (ABNORMAL) Lipid Panel, Standard (06/18/2024 8:11 AM EST) [facility] Triglycerides 168(H) <150 mg/dL [facility] Comment:Desirable Triglyceri de: less than 150 mg/dLBorderline High Triglyceride 150-199 mg/dLHigh Triglyceride: 200-499 mg/dLVery High Triglyceride: greater than or equal to 5OO mg/dL Cholesterol 155 <200 mg/dL [facility] Comment:Desirable Cholestero l: less than 200 mg/dLBorderline High Cholesterol: 200-239 mg/dLHigh Cholesterol: greater than 239 mg/dL LDL Cholesterol Calculated 91 <100 mg/dL [facility] Comment:Desirable LDL: less than 100 mg/dLNear Optimal/Above Optimal LDL: 110- 129 mg/dLBorderline High LDL: 130-159 mg/dLHigh LDL: 160-189 mg/dLVery High LDL: greater than or equal to 190 mg/dL HDL Cholesterol 31(L) >40 mg/dL [facility] Comment:Desirable HDL: great er than 40 mg/dL Note: This HDL assay may give artificially low results in patients with liver disease. Blood Venous blood specimen / Unknown 06/18/2024 8:11 AM EST 06/18/2024 11:07 AM EST us Td Bautista MD LAB BLOOD ORDERABLES Final Resul t [facility] [address] [place] [phone] * HEPATITIS C AB W/REFL TO HCV RNA, QN, PCR (11/26/2020 3:44 PM EDT) HEPATITIS C ANTIBODY NON-REACT ALYSSA NON-REACT ALYSSA [facility] INDEX 0.01 <1.00 [facility] Comment: ?? HCV antibody was non-reactive. There is no laboratory ?? evidence of HCV infection. ?? In most cases, no further action is required. However, if recent HCV exposure is suspected, a test for HCV RNA (test code 19008) is suggested. ?? For additional information please refer to http://education.InstaMed/faq/QBF13r2 (This link is being provided for informational/ educational purposes only.) ?? 11/26/2020 3:44 PM EDT Taina Petersen MD HISTORICAL/NON ORDERABLE LABS Final Result Performing Organization Address [facility] de Phone Number [facility] [address] * HIV 1/2 ANTIGEN/ANTIBODY,FOURTH GENERATION W/RFL (11/26/2020 3:44 PM EDT) HIV-1/2 ANTIGEN AND ANTIBODIES, 4TH GENERATION W/ REFLEX NON-REACT ALYSSA NON-REACT ALYSSA [facility] Comment: HIV-1 antigen and HIV-1/HIV-2 [...] ? For additional information please refer to http://education.[employer]/faq/LYD678 (This link is being provided for informational/ educational purposes only.) ? The performance of this assay has not been clinically validated in patients less than 2 years old. ?? 11/26/2020 3:44 PM EDT us Taina Petersen MD LAB BLOOD ORDERABLES Final Re sult Performing Organization Address [facility] de Phone Number [facility] [address] from Last 3 Months or Most Recently Relevant to Health Maintenance Insurance [facility] Care Teams Justice [employer] Relationship Specialty Start Date End Date Name, MD Td [address] [place] [phone] PCP - General Family Medicine 01/19/22
--- OUTSIDE RECORDS SUMMARY | 2024-10-02 15:27 | XMS_ITS | Encounter Summary ---
Author Organization [employer] Address [address] [facility] [address] [place] [address] Care Team Providers Care Advanced Practice Nurse Psychotherapist Name Role Phone Name, Td CADE Primary Care Provider [phone] Encounter Details Date Type Department Care Team ([facility] st Contact Info) Description 10/18/2022 Abstract [employer] Information Management [address] [place], [place] [phone] Name, MD Td [address] [place] [address] Social History Tobacco Use Types Packs/Day Years [...] Industry Job Start Date Job End Date [employer] Not on file Not on file Not [...] documented as of this encounter Care Teams Advanced Practice Nurse Psychotherapist Relationship Specialty Start Date End Date Name, MD Td [address] [place] [address] PCP - General Family Medicine 01/19/22 documented as of this encounter
== END 2024-10-02 15:24 | disposition home or self-care (01) ==
LOC: HO.XRAY 15:23
PROVIDERS: PCP Internal Medicine Geriatric Medicine; Visit Provider Internal Medicine Geriatric Medicine
DX: M54.2 Cervicalgia (principal); M25.511 Pain in right shoulder; G89.29 Other chronic pain
CPT/HCPCS: 72040; 73030

== ENCOUNTER → 2024-10-02 15:28 | Outpatient (BNV) | payer OTHER, SELFPAY | PROVIDERS: PCP Internal Medicine Geriatric Medicine; Visit Provider Radiology Diagnostic Radiology | DX: M54.2 Cervicalgia (principal); M25.511 Pain in right shoulder | CPT/HCPCS: 72040; 73030 ==

== ENCOUNTER 2024-11-14 10:51 | Outpatient (REF) | payer OTHER, SELFPAY ==
--- OUTSIDE RECORDS SUMMARY | 2024-11-14 12:52 | XMS_ITS | Clinical Summary ---
Author Organization [employer] Address [address] [facility] [address] [place] [address] Care Team Providers Care Director Of Fundraising Name Role Phone Name, Td CADE Primary Care Provider [phone] Allergies No known active allergies Medications atorvastatin (Lipitor) 20 MG tabletIndicati ons:On statin therapy Take 1 tablet (20 mg) by mouth Once per day. 30 tablet 11 05/17/20 24 025 Active nicotine (Nicoderm CQ) 7 MG/24HR patch Place 1 patch on the skin 1 (one) time each day at the same time. 14 patch 07/09/19 25 Active nicotine (Nicoderm CQ) 14 MG/24HR patch Place 1 patch on the skin 1 (one) time each day at the same time. 42 patch 07/09/19 25 Active acetaminophen (Tylenol) 500 MG tablet Take 2 tablets (1,000 mg) by mouth every 6 (six) hours if needed for moderate pain or fever for up to 40 doses. 50 tablet 10/26/19 25 Active nicotine polacrilex (Commit) 2 MG lozenge Dissolve 1 lozenge (2 mg) in the mouth if needed for smoking cessation. 100 lozenge 10/26/19 25 025 Active celecoxib (CeleBREX) 200 MG capsuleIndicat ions:Neck pain, chronic,Chroni c right shoulder pain,Arm pain, superior, right Take 1 capsule (200 mg) by mouth if needed in the morning and at bedtime for mild pain or moderate pain for up to 20 days. 40 capsule 10/26/19 25 025 Active acetaminophen (Tylenol) 500 MG tablet Take 2 tablets (1,000 mg) by mouth every 6 (six) hours if needed for moderate pain or fever for up to 40 doses. 50 tablet 07/09/19 25 025 Discontinued(Re order (will not trigger notification to Pharmacy)) nicotine polacrilex (Commit) 2 MG lozenge Dissolve 1 lozenge (2 mg) in the mouth if needed for smoking cessation. 100 each 07/09/19 25 025 Discontinued(Re order (will not trigger notification to Pharmacy)) celecoxib (CeleBREX) 200 MG capsuleIndicat ions:Neck pain, chronic,Chroni c right shoulder pain,Arm pain, superior, right Take 1 capsule (200 mg) by mouth if needed in the morning and at bedtime for mild pain or moderate pain for up to 20 days. 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 Encounters Date Type Department Care Team Description 11/14/2024 10:00 AM EDT Office Visit [facility] [address] [place] [phone] Shahla Driscoll MD Dizziness on standing (Primary Dx); Black stools 11/14/2024 Travel 10/25/2024 Telephone [facility] [address] [place] [phone] Pratibha Mckeon MA december recalls 10/25/2024 Refill [facility] [address] [place], [place] [phone] Td Bautista MD Neck pain, chronic; Chronic right shoulder pain; Arm pain, superior, right 10/02/2024 11:00 AM EDT Office Visit [facility] [address] [place] [address] [phone] Td Bautista MD Neck pain, chronic (Primary Dx); Chronic right shoulder pain; Arm pain, superior, right; High cholesterol; Tobacco use 10/02/2024 Travel 10/01/2024 Telephone [facility] [address] [place] [address] Name, MD Td Chart Prep from Last 3 Months Immunizations Immunization Administration [...] your housing situation today? 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 Not on file Not on hosea e Last Filed Vital Signs Vital Sign Reading Time Taken Comments Blood Pressure 102/61 11/14/2024 10:07 AM EDT Pulse 98 11/14/2024 10:07 AM EDT Temperature 36.8 C (98.2 F) 11/14/2024 10:07 AM EDT Respiratory Rate 18 11/14/2024 10:0 7 AM EDT Oxygen Saturation 96% 11/14/2024 10: 07 AM EDT Inhaled Oxygen Concentration - - Weight 83.8 kg (184 lb 12.8 oz) 025 10:07 AM EDT Height 172.7 cm (5' 8 ) 10/02/2024 11:1 1 AM EDT Body Mass Index 28.1 10/02/2024 11:11 AM EDT Plan of Treatment Health Maintenance Due Date Last Done Comments CT Colonography 1960 Colonoscopy 1960 Colorectal Cancer Screening 1960 FIT DNA/Cologuard 1960 FIT 1960 FOBT 1960 Sigmoidoscopy 1960 Hepatitis B Vaccines (2 of 3 - 19+ 3-dose series) 10/16/2012 09/18/2012 COVID-19 Vaccine ( season) 2024 06/14/2022, 04/12/2021, 07/21/2020, Additional history exists Influenza Vaccine (Season Ended) 2025 02/27/2020, 04/01/2014 Alcohol/Substance Use Screening 10/02/2025 10/02/2024 Depression Screening 10/02/2025 10/02/2024, 10/03/19 Disability Screening 10/02/2025 10/02/2024 SDOH Screening 10/02/2025 10/02/2024 Tobacco Screening 10/02/2025 [...] Procedure Name Priority Date/Time Associated Diagnosis Comments ECG 12-LEAD Routine 11/14/2024 10:52 AM EDT Dizziness on standing XR SHOULDER 2+ VIEWS RIGHT Routine 10/02/2024 3:29 PM EDT Chronic right shoulder pain XR CERVICAL SPINE 3V Routine 10/02/2024 3:29 PM EDT Neck pain, chronic LIPID PANEL, STANDARD Routine 06/18/2024 8:11 AM EST On statin therapy ZZZ HISTORICAL HEPATITIS C AB W/REFL TO HCV RNA, QN, PCR Routine 11/26/2020 3:44 PM EDT HIV 1/2 ANTIGEN/ANTIBODY, FOURTH GENERATION W/RFL Routine 11/26/2020 3:44 PM EDT from Last 3 Months or Most Recently Relevant to Health Maintenance Results * ECG 12 lead (11/14/2024 10:52 AM EDT) Narrative Shahla Driscoll MD - 11/14/2024 10:52 AM EDT NSR No Acute process us Shahla Driscoll MD ECG ORDERABLES Final Result * XR CERVICAL SPINE 3V (10/02/2024 3:29 PM EDT) Anatomical Region Laterality Modality Abdomen Radiographic Erma ging 10/02/2024 3:29 PM EDT Narrative 10/03/2024 9:00 AM EDT [place] [address] XRay Report Signed Patient: Jos Bosch MR#: [id number] : 1960 Acct:[id number] Age/Sex: 64 / M ADM Date: 10/02/24 Loc: [facility] Attending Dr: Td Bautista MD Ordering Physician: Td Bautista MD Date of Service: 10/02/24 Procedure(s): XR cervical spine 3V Accession Number(s): [id number] cc: Td Bautista MD EXAMINATION: XR CERVICAL SPINE CLINICAL INFORMATION: NECK PAIN, right sided with radiation to the hand and right shoulder. COMPARISON: CT C-spine 2020. Plain films of C-spine 07/24/2017. TECHNIQUE: 3 views of the cervical spine were obtained. FINDINGS: There is a minimal levoconvex scoliosis, possibly positional. There is a normal lordosis. The C7-T1 interspace is somewhat obscured by the patient's shoulder. There is no subluxation. There is no compression deformity, fracture, or evidence of subluxation. Normal facet alignment bilaterally with mild degenerative facet changes left greater than right. Mild degenerative disc changes present most notable C5-6 and C6-7. No prevertebral or paravertebral soft tissue abnormality. Lung apices clear. XR/XR cervical spine 3V IMPRESSION: Mild to moderate cervical spondylosis. No acute bony abnormalities. Electronically signed by: Todd Balbuena MD 10/03/2024 08:57 AM EDT RP Dictated By: Todd Balbuena MD Signed By: <Electronically signed by Todd Balbuena MD in OV> 10/03/24 0857 DD/ 1529 TD/TT: 10/02/24 1545 Ships Or Barges Loader: Procedure Note Donotuseinterpreter, Image - 10/07/2024 [place] [address] XRay Report Signed Patient: Jos BoschMR#: [id number] : 1960Acct:[id number] Age/Sex: 64 / MADM Date: 10/02/24 Loc: HO.XRAY Attending Dr: Td Bautista MD Ordering Physician: Td Bautista MD Date of Service: 10/02/24 Procedure(s): XR cervical spine 3V Accession Number(s): [id number] cc: Td Bautista MD EXAMINATION: XR CERVICAL SPINE CLINICAL INFORMATION: NECK PAIN, right sided with radiation to the hand and right shoulder. COMPARISON: CT C-spine 2020. Plain films of C-spine 07/24/2017. TECHNIQUE: 3 views of the cervical spine were obtained. FINDINGS: There is a minimal levoconvex scoliosis, possibly positional. There is a normal lordosis. The C7-T1 interspace is somewhat obscured by the patient's shoulder. There is no subluxation. There is no compression deformity, fracture, or evidence of subluxation. Normal facet alignment bilaterally with mild degenerative facet changes left greater than right. Mild degenerative disc changes present most notable C5-6 and C6-7. No prevertebral or paravertebral soft tissue abnormality. Lung apices clear. XR/XR cervical spine 3V IMPRESSION: Mild to moderate cervical spondylosis. No acute bony abnormalities. Electronically signed by: Todd Balbuena MD 10/03/2024 08:57 AM EDT Dictated By: Todd Balbuena MD Signed By: <Electronically signed by Todd Balbuena MD in OV> 10/03/24 0857 DD/ 1529 TD/TT: 10/02/24 1545 Ships Or Barges Loader: Td Bautista MD IMG XR PROCEDURES Edited Result - Final * XR Shoulder 2+ Views Right (10/02/2024 3:29 PM EDT) Anatomical Region Laterality Modality Upper Extremities, Shoulder Right Radi ographic Imaging 10/02/2024 3:29 PM EDT Narrative 10/03/2024 8:54 AM EDT [place] [address] XRay Report Signed Patient: Jos Bosch MR#: [id number] : 1960 Acct:[id number] Age/Sex: 64 / M ADM Date: 10/02/24 Loc: HO.[facility] Attending Dr: Td Bautista MD Ordering Physician: Td Bautista MD Date of Service: 10/02/24 Procedure(s): XR shoulder RT min 2V Accession Number(s): [id number] cc: Td Bautista MD EXAMINATION: XR SHOULDER, RIGHT CLINICAL INFORMATION: Shoulder pain for a month on and off. No history of trauma COMPARISON: None available. TECHNIQUE: AP external rotation, Grashey, scapular Y, and axillary views of the right shoulder. FINDINGS: Normal bone mineralization. No fracture, dislocation, or suspicious bone lesion. Normal alignment. The glenohumeral joint demonstrate early arthritic changes. The AC joint demonstrates early arthritic changes with predominantly superior surface spurs. There is a type II acromion. No undersurface spurring. The subacromial space is preserved. Remainder of the soft tissue and bony structures appear normal. XR/XR shoulder RT min 2V IMPRESSION: 1. No acute bony abnormality. 2. 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 Electronically signed by: Todd Balbuena MD 10/03/2024 08:52 AM EDT RP Dictated By: Todd Balbuena MD Signed By: <Electronically signed by Todd Balbuena MD in OV> 10/03/24 0852 DD/ 1529 TD/TT: 10/02/24 1545 Ships Or Barges Loader: Procedure Note Donotuseinterpreter, Image - 10/07/[address] [address] XRay Report Signed Patient: Casey Bosch#: [id number] : 1960Acct:[id number] Age/Sex: 64 / MADM Date: 10/02/24 Loc: HO.XRAY Attending Dr: Td Bautista MD Ordering Physician: Td Bautista MD Date of Service: 10/02/24 Procedure(s): XR shoulder RT min 2V Accession Number(s): [id number] cc: Td Bautista MD EXAMINATION: XR SHOULDER, RIGHT CLINICAL INFORMATION: Shoulder pain for a month on and off. No history of trauma COMPARISON: None available. TECHNIQUE: AP external rotation, Grashey, scapular Y, and axillary views of the right shoulder. FINDINGS: Normal bone mineralization. No fracture, dislocation, or suspicious bone lesion. Normal alignment. The glenohumeral joint demonstrate early arthritic changes. The AC joint demonstrates early arthritic changes with predominantly superior surface spurs. There is a type II acromion. No undersurface spurring. The subacromial space is preserved. Remainder of the soft tissue and bony structures appear normal. XR/XR shoulder RT min 2V IMPRESSION: 1. No acute bony abnormality. 2. 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 Electronically signed by: Todd Balbuena MD 10/03/2024 08:52 AM EDT RP Dictated By: Todd Balbuena MD Signed By: <Electronically signed by Todd Balbuena MD in OV> 10/03/24 0852 DD/ 1529 TD/TT: 10/02/24 1545 Ships Or Barges Loader: us Td Bautista MD IMG XR PROCEDURES Edited Result - Final * (ABNORMAL) Lipid Panel, Standard (06/18/2024 8:11 AM EST) Triglycerides 168(H) <150 mg/dL [facility] Comment:Desirable Triglyceri de: less than 150 mg/dLBorderline High Triglyceride 150-199 mg/dLHigh Triglyceride: 200-499 mg/dLVery High Triglyceride: greater than or equal to 5OO mg/dL Cholesterol 155 <200 mg/dL [facility] Comment:Desirable Cholestero l: less than 200 mg/dLBorderline High Cholesterol: 200-239 mg/dLHigh Cholesterol: greater than 239 mg/dL LDL Cholesterol Calculated 91 <100 mg/dL [facility] Comment:Desirable LDL: less than 100 mg/dLNear Optimal/Above Optimal LDL: 110- 129 mg/dLBorderline High LDL: 130-159 mg/dLHigh LDL: 160-189 mg/dLVery High LDL: greater than or equal to 190 mg/dL HDL Cholesterol 31(L) >40 mg/dL [facility] Comment:Desirable HDL: great er than 40 mg/dL Note: This HDL assay may give artificially low results in patients with liver disease. Blood Venous blood specimen / Unknown 06/18/2024 8:11 AM EST 06/18/2024 11:07 AM EST us Td Bautista MD LAB BLOOD ORDERABLES Final Resul t [facility] [address] [place], [place] [phone] * HEPATITIS C AB W/REFL TO HCV RNA, QN, PCR (11/26/2020 3:44 PM EDT) HEPATITIS C ANTIBODY NON-REACT ALYSSA NON-REACT ALYSSA [facility] INDEX 0.01 <1.00 [facility] Comment: HCV antibody was non-reactive. There is no laboratory evidence of HCV infection. In most cases, no further action is required. However, if recent HCV exposure is suspected, a test for HCV RNA (test code 27313) is suggested. For additional information please refer to http://Sympoz.Rezzie/faq/ICZ54g1 (This link is being provided for informational/ educational purposes only.) 11/26/2020 3:44 PM EDT Taina Petersen MD HISTORICAL/NON ORDERABLE LABS Final Result Performing Organization Address [facility] de Phone Number [facility] [address] * HIV 1/2 ANTIGEN/ANTIBODY,FOURTH GENERATION W/RFL (11/26/2020 3:44 PM EDT) HIV-1/2 ANTIGEN AND ANTIBODIES, 4TH GENERATION W/ REFLEX NON-REACT ALYSSA NON-REACT ALYSSA [facility] Comment: HIV-1 antigen and HIV-1/HIV-2 antibodies were not detected. There is no laboratory evidence of HIV infection. PLEASE NOTE: This information has been disclosed to you from records whose confidentiality may be protected by state law. If your state requires such protection, then the state law prohibits you from making any further disclosure of the information without the specific written consent of the person to whom it pertains, or as otherwise permitted by law. A general authorization for the release of medical or other information is NOT sufficient for this purpose. For additional information please refer to http://education.StoreFront.net.Tapestry/faq/TGL786 (This link is being provided for informational/ educational purposes only.) The performance of this assay has not been clinically validated in patients less than 2 years old. 11/26/2020 3:44 PM EDT Taina Petersen MD LAB BLOOD ORDERABLES Final Re sult Performing Organization Address [facility] de Phone Number [facility] [address] from Last 3 Months or Most Recently Relevant to Health Maintenance Insurance * Guarantor: Jos Bosch Account Type Relation to Patient Date of Phone Billing Address Personal/Family Self [phone] Care Teams Director Of Fundraising Relationship Specialty Start Date End Date Name, MD Td [address] [place] [address] PCP - General Family Medicine 01/19/22
[2024-11-14 13:17] LABS: MANUAL DIFF FLAG NO
[2024-11-14 13:25] LABS: Basophils Absolute Auto 0.1 X10*3/uL (0.0-0.2); Basophils Percent Auto 0.7 % (0-2); Eosinophils Absolute Auto 0.1 X10*3/uL (0.0-0.4); Eosinophils Percent Auto 1.4 % (0-4); Hematocrit 30.8 % (42.0-52.0); Hemoglobin 9.9 g/dl (14.0-18.0); Imm Gran Abs Auto 0.05 X10*3/uL (0.00-0.03); Imm Gran Pct Auto 0.5 % (0.0-0.4); Lymphocytes Absolute Auto 2.8 X10*3/uL (1.2-4.9); Lymphocytes Percent Auto 27.3 % (20-40); Mean Corpuscular HGB Conc 32.1 g/dl (31.0-36.0); Mean Corpuscular Hemoglobin 29.5 pg (27.0-33.0); Mean Corpuscular Volume 91.7 fL (80.0-98.0); Mean Platelet Volume 12.3 fL (9.4-12.4); Monocytes Absolute Auto 0.7 X10*3/uL (0.1-1.2); Monocytes Percent Auto 6.8 % (2-11); Neutrophils Absolute Auto 6.4 x10*3/uL (2.0-8.3); Neutrophils Percent Auto 63.3 % (45-73); Platelet Count 164 X10*3/uL (160-400); Red Blood Count 3.36 X10*6/uL (4.60-5.80); Red Cell Distribution Width 13.9 % (11.0-16.0); White Blood Count 10.1 X10*3/uL (4.8-10.8)
[2024-11-14 13:43] LABS: Alanine Aminotransferase 16 U/L (0-40); Albumin Level 3.7 g/dL (3.5-5.0); Alkaline Phosphatase 58 U/L (39-117); Anion Gap 11 (12-20); Aspartate Amino Transferase 19 U/L (5-37); Bilirubin Direct < 0.2 mg/dL (0.0-0.5); Bilirubin Total 0.1 mg/dL (0.0-1.0); Blood Urea Nitrogen 57 mg/dL (9-16); Calcium 8.6 mg/dL (8.4-10.2); Carbon Dioxide 24 mmol/L (22-29); Chloride 109 mmol/L (96-108); Estimated Glomerular Filt Rate > 60; Glucose Random 108 mg/dL (60-115); Potassium 4.7 mmol/L (3.3-5.1); Sodium 139 mmol/L (135-145); Total Protein 5.8 g/dL (6.5-8.0)
== END 2024-11-14 10:52 | disposition home or self-care (01) ==
LOC: HO.HHCL 10:51
PROVIDERS: PCP Internal Medicine Geriatric Medicine; Visit Provider Student in an Organized Health Care Education/Training Program
DX: R42 Dizziness and giddiness (principal)
CPT/HCPCS: 36415; 80048; 80076; 85025

== ENCOUNTER 2024-11-14 16:05 | Inpatient (IN) | payer OTHER, SELFPAY ==
[2024-11-14 16:26] VITALS: BP 132/59; PULSE 91; RESP 16; TEMP 36.8; O2SAT 98; BMI 29.9
--- NOTE | 2024-11-14 16:34 | ECG_ITS ---
Test Reason : dizziness Blood Pressure : */* mmHG Vent. Rate : 91 BPM Atrial Rate : 91 BPM P-R Int : 118 ms QRS Dur : 70 ms QT Int : 338 ms P-R-T Axes : 76 41 59 degrees QTcB Int : 415 ms Normal sinus rhythm Normal ECG No previous ECGs available Referred By: Ariela Lieberman Electronically Signed By: ARJUN OTTO
--- NOTE | 2024-11-14 16:35 | ED.GENADULT ---
HPI - General Adult General Chief complaint: Recheck/Abnormal Lab/Rx Stated complaint: abnormal labs Time Seen by Provider: 11/14/24 18:28 Source: patient, family, RN notes reviewed, old records reviewed and node js developer Mode of arrival: ambulatory Limitations: language barrier History of Present Illness ED Provider: Cong PARNELL narrative: 64-year-old male who denies any past medical history presents for evaluation of dizziness and shortness of breath Patient reports that his symptoms started today while he was at work. He went to [facility] and had labs drawn was ultimately sent to the ER for further evaluation and management. The patient reports dark black stool for the last 2 days He denies any abdominal or rectal pain Denies any history of GI bleed. He reports drinking alcohol socially but not daily Denies any fevers or chills He is not anticoagulated No other complaints or concerns at this time He reports that he has never had a colonoscopy or endoscopy Related Data Home Medications ?Medication ?Instructions ?Recorded ?Confirmed atorvastatin 20 mg tablet 20 mg PO DAILY 04/29/24 Previous Rx's ?Medication ?Instructions ?Recorded naproxen 500 mg tablet 500 mg PO BID PRN pain #20 tabs 03/22/20 bisacodyl 5 mg tablet,delayed 20 mg (4 x 5 mg) PO ONCE 1 day #4 05/29/24 release (Dulcolax (bisacodyl)) tabs polyethylene glycol 3350 17 238 g PO ONCE #238 grams 05/29/24 gram/dose oral powder (Miralax) Allergies Allergy/AdvReac Type Severity Reaction Status Date / Time No Known Allergies Allergy Verified 11/14/24 16:35 Review of Systems Constitutional: Constitutional: Denies body ache(s), Denies chills, Denies fever(s), Denies frequent falls and Denies headache(s) Eyes: Eyes: Denies exophthalmos ENT: Denies dizziness and Denies headache(s) Cardiovascular: Cardiovascular: Denies chest pain, Reports dyspnea and Reports dyspnea on exertion Respiratory: Respiratory: Denies cough, Reports dyspnea and Reports dyspnea on exertion Gastrointestinal: Gastrointestinal: Denies abdominal pain, Reports melena, Denies loose stools, Denies nausea, Denies vomiting and Denies hematemesis Musculoskeletal: Musculoskeletal: Denies back pain Integumentary/Breasts: Skin/Breast: Denies rash Neurologic: Denies dizziness, Denies frequent falls and Denies headache(s) Psychiatric: Psychiatric: Denies anxiety [facility] Past Medical History Medical History (Updated 11/14/24 @ 19:02 by Yariel Gar) Hyperlipidemia Nicotine dependence, cigarettes, uncomplicated Surgical History Hx of left knee surgery Hx of colonoscopy Family History Family History Mother Alzheimer disease Colon cancer Social History Social History Household Members: Spouse and Children Alcohol intake: current Alcohol intake frequency: a few times a week Patient Tobacco Use Status: Current everyday Tobacco user Tobacco use type: Cigarette Cigarettes Per Day: 10 Smoked in Last 30 Days: Yes Use of substances other than those prescribed or required for medical reasons: No Advance Directives: No Advance Directives Information Provided: No Do you have a plan to hurt others: No Plan Physical Exam ED Vital Signs: Vital Signs - 24 hr 11/14/24 16:26 11/14/24 17:25 Temperature 98.3 F 98.4 F Pulse Rate 91 86 Respiratory Rate 16 19 Blood Pressure 132/59 L 121/62 Pulse Oximetry 98 99 Oxygen Delivery Method Room Air Room Air BMI result Body Mass Index 29.9 Const General: healthy appearing, comfortable, no acute distress, alert and awake Nutritional Appearance: well nourished Orientation/consciousness: patient oriented x3 HENMT Head: Yes normocephalic and Yes atraumatic Eyes Eyelids: Yes eyelids normal Conjunctivae: conjunctivae normal Sclerae: sclerae normal Corneas: corneas normal Pupils: Equal, round and reactive pupils present EOM: EOMs intact bilaterally Neck Neck: Yes full ROM Resp Effort & Inspection: normal respiratory effort, able to speak in complete sentences and not labored GI Inspection: No distended Palpation (GI): Soft to palpation, not firm, nontender, no guarding and not rigid Auscultation: normoactive bowel sounds Rectal Exam - Male: Yes Abnormal stool present (dark brown stool) and Yes heme positive stool Skin General skin exam: elasticity normal Neuro General: patient oriented x3 Cranial nerves: Yes Equal, round and reactive pupils present and Yes Bilaterally intact EOM present Cognition (Neuro): normal cognition Extrem Other: Moving all extremities well without any obvious deformities Course Course Course Narrative: This is an RME: Additional HPI, ROS, PE not included below will be deferred to primary provider. RME assessment and note performed by: Ariela Lieberman PA-C This is a [id number]-male, HLD noncompliant on statin, who presents to the ER with complaint of dizziness and black stool x 2 days. Patient was told to come to the emergency room as he reported to the [facility], had blood drawn was told to come in. Patient is pale in color. Plan: Labs, EKG Medications Administered Discontinued Medications Generic Name Dose Route Start Last Admin Trade Name Freq PRN Reason Stop Dose Admin Pantoprazole Sodium 40 mg 11/14/24 18:43 11/14/24 19:01 Pantoprazole Sodium 40 Mg/10 Ml Vial IVPUSH 11/14/24 18:44 40 mg ONCE ONE Administration Medical Decision Making Medical Decision Making MDM Narrative: 64-year-old male who denies any past medical history presents for evaluation of shortness of breath, dizziness for the last 24 hours and dark black stool for the last 2 days. Denies any abdominal pain. He is guaiac positive on exam. His vital signs are currently stable. However his hemoglobin today is 9.9 with a hematocrit 30.0. This is a decrease in his last labs in September of last year and a hemoglobin of 14.3 and hematocrit of 44.8 respectively. Given the drop of over 4 points and the patient is symptomatic with dizziness and shortness of breath with a guaiac positive stool we will discuss with GI. Differential Diagnosis Differential Diagnoses: The differential diagnosis associated with the presentation includes Upper GI bleed Gastric ulcer Lower GI bleed Symptomatic anemia Admission/Observation Consideration of admission/observation: Escalation of care including admission/observation considered Consult Healthcare Provider Management of the patient was discussed with: Ammunition Assembly Laborer (GI, Dr. Mckeon) Lab Data MDM Lab Attestation statement: I reviewed the patient's lab results. No leukocytosis. The patient is a normocytic anemia with a hemoglobin and hematocrit of 9.9 and 30.0. This reflects a 4.4 point drop of hemoglobin when compared to her labs from this time last year. 11/14/24 16:49 11/14/24 16:49 Labs: Lab Results 06/11/14/24 11/14/24 Range/Units 16:48 16:49 18:44 WBC 10.8 (4.8-10.8) X10*3/uL RBC 3.33 L (4.60-5.80) X10*6/uL Hgb 9.9 L (14.0-18.0) g/dl Hct 30.0 L (42.0-52.0) % MCV 90.1 (80.0-98.0) fL MCH 29.7 (27.0-33.0) pg MCHC 33.0 (31.0-36.0) g/dl RDW 13.9 (11.0-16.0) % Plt Count 161 (160-400) X10*3/uL MPV 11.1 (9.4-12.4) fL Immature Gran % (Auto) 0.4 (0.0-0.4) % Neut % (Auto) 52.9 (45-73) % Lymph % (Auto) 37.0 (20-40) % [place] % (Auto) 7.7 (2-11) % Eos % (Auto) 1.5 (0-4) % Baso % (Auto) 0.5 (0-2) % Lymph # (Auto) 4.0 (1.2-4.9) X10*3/uL [place] # (Auto) 0.8 (0.1-1.2) X10*3/uL Eos # (Auto) 0.2 (0.0-0.4) X10*3/uL Baso # (Auto) 0.1 (0.0-0.2) X10*3/uL Abs Immat Gran (auto) 0.04 H (0.00-0.03) X10*3/uL Absolute Neuts (auto) 5.7 (2.0-8.3) x10*3/uL Absolute Nucleated RBC 0.000 (0.0-0.012) X10*3/uL Nucleated RBC % (auto) 0.0 (0.0-0.2) /100WBC Sodium 138 (135-145) mmol/L Potassium 4.5 (3.3-5.1) mmol/L Chloride 105 (96-108) mmol/L Carbon Dioxide 26 (22-29) mmol/L Anion Gap 12 (12-20) BUN 46 H (9-16) mg/dL Creatinine 0.78 (0.5-1.4) mg/dL Estim Creat Clear Calc 97.2 Estimated GFR > 60 Random Glucose 93 (60-115) mg/dL Calcium 8.9 (8.4-10.2) mg/dL Magnesium 1.9 (1.6-2.6) mg/dL Total Bilirubin 0.1 (0.0-1.0) mg/dL Direct Bilirubin < 0.2 (0.0-0.5) mg/dL AST 18 (5-37) U/L ALT 18 (0-40) U/L Alkaline Phosphatase 58 (39-117) U/L Troponin I High Sens < 2.7 (<3.5-35.0) ng/L Total Protein 6.0 L (6.5-8.0) g/dL Albumin 3.9 (3.5-5.0) g/dL Lipase 16 (8-78) U/L Urine Color Yellow Urine Appearance Clear Urine pH 6.0 (5.0-9.0) Ur Specific [place] 1.010 (1.005-1.025) Urine Protein Negative (Neg-Trace) mg/dL Urine Glucose (UA) Negative (Negative) mg/dL Urine Ketones Negative (Negative) mg/dL Urine Blood Negative (Negative) Urine Nitrite Negative (Negative) Ur Leukocyte Esterase Negative (Negative) Stool Occult Blood POSITIVE (NEGATIVE) Influenza Type A (PCR) NEGATIVE (Negative) Influenza Type B (PCR) NEGATIVE (Negative) RSV RNA Qual (PCR) NEGATIVE (Negative) SARS-CoV-2 RNA (RT-PCR) NEGATIVE (Negative) Blood Type O Positive Antibody Screen NEGATIVE Discharge Plan Discharge Clinical Impression: Acute upper GI bleed, Signs and symptoms of anemia Patient Disposition: Admitted As Inpatient Print Language: Bahraini
[2024-11-14 16:54] LABS: Basophils Absolute Auto 0.1 X10*3/uL (0.0-0.2); Basophils Percent Auto 0.5 % (0-2); Eosinophils Absolute Auto 0.2 X10*3/uL (0.0-0.4); Eosinophils Percent Auto 1.5 % (0-4); Hemoglobin 9.9 g/dl (14.0-18.0); Imm Gran Abs Auto 0.04 X10*3/uL (0.00-0.03); Imm Gran Pct Auto 0.4 % (0.0-0.4); MANUAL DIFF FLAG NO; Mean Corpuscular Hemoglobin 29.7 pg (27.0-33.0); Mean Corpuscular Volume 90.1 fL (80.0-98.0); Mean Platelet Volume 11.1 fL (9.4-12.4); Monocytes Absolute Auto 0.8 X10*3/uL (0.1-1.2); Monocytes Percent Auto 7.7 % (2-11); Neutrophils Absolute Auto 5.7 x10*3/uL (2.0-8.3); Neutrophils Percent Auto 52.9 % (45-73); Platelet Count 161 X10*3/uL (160-400); Red Blood Count 3.33 X10*6/uL (4.60-5.80); Red Cell Distribution Width 13.9 % (11.0-16.0); White Blood Count 10.8 X10*3/uL (4.8-10.8)
[2024-11-14 16:57] LABS: Appearance Urine Clear; Color Urine Yellow; Glucose Urine UA Negative (Negative); Leukocyte Esterase Urine Negative (Negative); Nitrite Urine Negative (Negative); Urine Blood Negative (Negative); Urine Ketones Negative (Negative); Urine Protein Negative (Neg-Trace)
[2024-11-14 17:08] LABS: Alanine Aminotransferase 18 U/L (0-40); Albumin Level 3.9 g/dL (3.5-5.0); Alkaline Phosphatase 58 U/L (39-117); Anion Gap 12 (12-20); Aspartate Amino Transferase 18 U/L (5-37); Bilirubin Direct < 0.2 mg/dL (0.0-0.5); Bilirubin Total 0.1 mg/dL (0.0-1.0); Blood Urea Nitrogen 46 mg/dL (9-16); Calcium 8.9 mg/dL (8.4-10.2); Carbon Dioxide 26 mmol/L (22-29); Chloride 105 mmol/L (96-108); Creatinine Clr Calc Pharmacy 97.2; Estimated Glomerular Filt Rate > 60; Glucose Random 93 mg/dL (60-115); Lipase 16 U/L (8-78); Magnesium 1.9 mg/dL (1.6-2.6); Potassium 4.5 mmol/L (3.3-5.1); Sodium 138 mmol/L (135-145)
[2024-11-14 17:18] LABS: Troponin-I High Sensitivity < 2.7 ng/L (<3.5-35.0)
[2024-11-14 17:25] VITALS: BP 121/62; PULSE 86; RESP 19; TEMP 36.9; O2SAT 99
--- NOTE | 2024-11-14 17:39 | PC.NURSE ---
Pt sent to ED from doctors office for low hgb 9.9 and black tarry stools x 2 days. Pt is pale and reports dizziness/SOB. Breathing freely on room air, respirations even and unlabored. Placed on monitor, NSR. #20 placed to LAC. Reports 7/10 headache, call lopes placed within reach.
[2024-11-14 17:45] LABS: Influenza A PCR NEGATIVE (Negative); Influenza B PCR NEGATIVE (Negative); Resp Syncy Virus RNA Qual PCR NEGATIVE (Negative); SARS COV2 PCR INHOUSE NEGATIVE (Negative)
[2024-11-14 18:51] LABS: OBS Int Ctl Valid YES; OBS1 POSITIVE (NEGATIVE)
[2024-11-14] MEDS: Pantoprazole Sodium 40 MG/10 ML VIAL IVPUSH (19:01)
--- NOTE | 2024-11-14 19:17 | P.HPHOSP_ITS ---
History of Present Illness Date of Service: 11/14/24 Chief Complaint: Dizziness, black stools This has a 64-year-old male with pertinent history of tobacco use disorder who presents to the emergency department for evaluation of dizziness, black stools and shortness of breath. Patient states that on the morning of presentation he started having dizziness and lightheadedness. Also was having dyspnea which was worse with exertion. Patient states he noticed that he has been having black stools for the last 2 days. Does have symptoms of gastroesophageal reflux disease. No abdominal pain, nausea, vomiting. States he had a colonoscopy 10 years ago which was apparently normal. Does endorse taking naproxen 3 to 4 times a week and he has been taking it for more than a year. Denies significant alcohol use. Only drinks socially on the weekends. Never has had GI bleed in the past. No fever, chills, chest pain, palpitations, changes in urinary habits. Patient is Bangladeshi speaking and history obtained with the help of educational sign language interpreter. In the emergency department, hemoglobin was found to be low at 9.9 and stool occult blood positive. Review of Systems 2 Constitutional: Constitutional: Reports malaise Cardiovascular: Cardiovascular: Reports no additional cardiovascular complaints and Reports dyspnea on exertion Respiratory: Respiratory: Reports dyspnea on exertion Gastrointestinal: Gastrointestinal: Reports melena Genitourinary: Genitourinary: Reports no additional male genitourinary complaints [facility] Medical History Hyperlipidemia Nicotine dependence, cigarettes, uncomplicated Family History Mother Alzheimer disease Colon cancer Surgical History Hx of left knee surgery Hx of colonoscopy Social History Household Members: Spouse and Children Alcohol intake: current Alcohol intake frequency: a few times a week Patient Tobacco Use Status: Current everyday Tobacco user Tobacco use type: Cigarette Cigarettes Per Day: 10 Smoked in Last 30 Days: Yes Use of substances other than those prescribed or required for medical reasons: No Advance Directives: No Advance Directives Information Provided: No Do you have a plan to hurt others: No Plan Meds Allergies Allergy/AdvReac Type Severity Reaction Status Date / Time No Known Allergies Allergy Verified 11/14/24 16:35 Home Medications ?Medication ?Instructions ?Recorded ?Confirmed ?Last Taken ?Type atorvastatin 20 mg tablet 20 mg PO DAILY 04/29/24 Unk nown History Physical Exam 2 Vital Signs and Narrative: Vital Signs: Last Vital Signs Temp 98.4 F 11/14/24 17:25 Pulse 86 11/14/24 17:25 Resp 19 11/14/24 17:25 BP 121/62 11/14/24 17:25 Pulse Ox 99 11/14/24 17:25 O2 Del Method Room Air 11/14/24 17:25 BMI result Body Mass Index 29.9 Middle-aged male lying in bed in no distress Neck supple, no JVD Regular rate and rhythm, S1-S2 heard Regular breath sounds bilaterally, no wheezing or crackles appreciated Abdomen soft nontender, no guarding, no rigidity Patient is awake, alert and oriented to self, place, time and person ; no focal motor deficit Psych: Normal mood No pedal edema Results Labs 11/14/24 16:49 11/14/24 16:49 Labs: Laboratory Results - last 24 hr 11/14/24 11/14/24 11/14/24 16:48 16:49 18:44 MCV 90.1 MCH 29.7 MCHC 33.0 RDW 13.9 Plt Count 161 MPV 11.1 Immature Gran % (Auto) 0.4 Neut % (Auto) 52.9 Lymph % (Auto) 37.0 [place] % (Auto) 7.7 Eos % (Auto) 1.5 Baso % (Auto) 0.5 Lymph # (Auto) 4.0 [place] # (Auto) 0.8 Eos # (Auto) 0.2 Baso # (Auto) 0.1 Abs Immat Gran (auto) 0.04 H Absolute Neuts (auto) 5.7 Absolute Nucleated RBC 0.000 Nucleated RBC % (auto) 0.0 Anion Gap 12 Estim Creat Clear Calc 97.2 Estimated GFR > 60 Random Glucose 93 Calcium 8.9 Magnesium 1.9 Total Bilirubin 0.1 Direct Bilirubin < 0.2 AST 18 ALT 18 Alkaline Phosphatase 58 Troponin I High Sens < 2.7 Total Protein 6.0 L Albumin 3.9 Lipase 16 Urine Color Yellow Urine Appearance Clear Urine pH 6.0 Ur Specific [place] 1.010 Urine Protein Negative Urine Glucose (UA) Negative Urine Ketones Negative Urine Blood Negative Urine Nitrite Negative Ur Leukocyte Esterase Negative Stool Occult Blood POSITIVE Influenza Type A (PCR) NEGATIVE Influenza Type B (PCR) NEGATIVE RSV RNA Qual (PCR) NEGATIVE SARS-CoV-2 RNA (RT-PCR) NEGATIVE Blood Type O Positive Antibody Screen NEGATIVE Assessment and Plan (1) Acute upper GI bleed: Status: Acute (2) Signs and symptoms of anemia: Status: Acute Plan This has a 64-year-old male with pertinent history of tobacco use disorder who presents to the emergency department for evaluation of dizziness, black stools and shortness of breath. #. Acute symptomatic blood loss anemia due to upper GI bleed in the setting of naproxen use: Will admit patient with cardiac monitoring. Resuscitated with IV crystalloids. Initiating IV Protonix. Will keep patient NPO after midnight. Consulted Gastroenterology, appreciate assistance #. Tobacco use disorder: Nicotine patch while in the hospital DVT prophylaxis: Mechanical Full code Admit as inpatient and will require two night minimum hospital stay for evaluation management of upper GI bleed with possible scope (as above), which is not possible in a lesser acute setting. Specialist consult pending Quality Stroke Does the patient have a stroke diagnosis?: No VTE Prior VTE?: No VTE Risk Level:: Medical - moderate - high VTE Device Contraindication: N/A - Device Ordered VTE Drug Contraindication: Treatment Not Indicated
--- NOTE | 2024-11-14 19:37 | PC.NURSE ---
this rn assumed care of pt, hospitalist at bedside at this time, no acute distress noted
[2024-11-14] MEDS: Lactated Ringers 1,000 ML 125 ML IVCONT (19:50)
[2024-11-14] MEDS: Nicotine 14 MG PATCH.TD24 TRANSDERMA (19:50)
--- NOTE | 2024-11-14 19:52 | PHA.MEDREC ---
Addendum entered by Baljeet Maldonado [facility] 11/14/24 20:02: MED REC CHECKED BY [facility] Original Note: Pharmacy Consult ? Medication Reconciliation Pharmacy has completed the medication reconciliation. Spoke with pt, utilizing engine test cell technician ([place]) and pt confirmed he only takes Advil and Aleve 2 tabs as needed for pain and nothing else at this time.
[2024-11-14 20:47] VITALS: BP 123/64; PULSE 81; RESP 16; O2SAT 98
[2024-11-14 23:25] VITALS: BP 114/53; PULSE 81; RESP 21; TEMP 36.9; O2SAT 99
[2024-11-15] VITALS (7 sets, daily range): BP systolic 89–131; BP diastolic 43–59; PULSE 78–87; RESP 15–19; TEMP 36.1–36.9; O2SAT 97–100; BMI 29.1
[2024-11-15] MEDS: Lactated Ringers 1,000 ML 125 ML IVCONT (04:08)
[2024-11-15] MEDS: Pantoprazole Sodium 40 MG/10 ML VIAL IVPUSH ×2 (05:39→17:29)
[2024-11-15 06:17] LABS: Hematocrit 27.6 % (42.0-52.0); Hemoglobin 9.1 g/dl (14.0-18.0); Mean Corpuscular Hemoglobin 29.7 pg (27.0-33.0); Mean Corpuscular Volume 90.2 fL (80.0-98.0); Mean Platelet Volume 12.1 fL (9.4-12.4); Platelet Count 132 X10*3/uL (160-400); Red Blood Count 3.06 X10*6/uL (4.60-5.80); Red Cell Distribution Width 13.7 % (11.0-16.0)
--- NOTE | 2024-11-15 06:20 | P.CNGI_ITS ---
History of Present Illness Data of Consult Service Date: 11/15/24 Primary Care Provider: Td Bautista MD HPI Reason for consult: anemia 64-year-old male with history of tobacco use disorder who I am seeing for assessment of anemia He initially presents with dizziness, black stools and exertional shortness of breath for 1-2 d. Denies abdominal pain, nausea, vomiting. Takes naproxen 3 to 4 times a week and he has been taking it for more than a year.. Only drinks socially on the weekends 12 beers or so In the emergency department, hemoglobin was found to be low at 9.9 and stool occult blood positive. Review of Systems 2 Review of Systems: Constitutional : No Weight loss, No Fever, No Chills ENT/Mouth : No sore throat, No Rhinorrhea Eyes: No Swelling, No Redness Cardiovascular : No Chest Pain, No SOB, No Edema Respiratory : No Cough, No Sputum, No Wheezing Gastrointestinal : see HPI Genitourinary : NO Dysuria, No Urinary Frequency, No Hematuria, No Urgency Musculoskeletal : + joint pain, No Myalgias, No Joint Swelling Skin : No Skin Lesions, No rash Neuro : No Weakness, No Numbness, No Dizziness, No Headache Psych : No Anxiety/Panic, No Depression Heme/Lymph: No Bruising, No Lymphadenopathy Endocrine : No Polyuria, No Polydipsia All other systems reviewed and are negative. [facility] Past Medical History Medical History Hyperlipidemia Nicotine dependence, cigarettes, uncomplicated Family History Family History Mother Alzheimer disease Colon cancer Surgical History Surgical History Hx of left knee surgery Hx of colonoscopy Social History Social History Household Members: Spouse Housing: House Do you presently have visiting nurse or other home services: No Alcohol intake: current Alcohol intake frequency: a few times a week Patient Tobacco Use Status: Current everyday Tobacco user Tobacco use type: Cigarette Cigarette Packs Per Day: 1 Cigarettes Per Day: 20.0 service: No Meds Allergies Allergy/AdvReac Type Severity Reaction Status Date / Time No Known Allergies Allergy Verified 11/14/24 16:35 Active Medications: Current Medications Acetaminophen (Acetaminophen 325 Mg Tablet) 650 mg PO Q6H PRN PRN Reason: Pain, Mild 1-3,fever,headache Calcium Carbonate (Calcium Carbonate 750 Mg Tab.Chew) 750 mg PO Q4H PRN PRN Reason: Heartburn Lactated Ringer's (Lr) 1,000 mls @ 125 mls/hr IVCONT .Q8H [facility] Last Admin: 11/15/24 04:08 Dose: 125 mls/hr Magnesium Hydroxide (Milk Of Magnesia 30 Ml Oral.Susp) 30 ml PO DAILY PRN PRN Reason: Constipation Melatonin (Melatonin 3 Mg Tablet) 6 mg PO BEDTIME PRN PRN Reason: Insomnia Nicotine (Nicotine 14 Mg Patch.Td24) 14 mg TRANSDERMA DAILY [facility] Last Admin: 11/14/24 19:50 Dose: 14 mg Ondansetron HCl (Ondansetron Hcl 4 Mg/2 Ml Vial) 4 mg IVPUSH Q8H PRN PRN Reason: Nausea and Vomiting Pantoprazole Sodium (Pantoprazole Sodium 40 Mg/10 Ml Vial) 40 mg IVPUSH BID@0630,1630 [facility] Last Admin: 11/15/24 05:39 Dose: 40 mg Sodium Chloride (0.9 % Sodium Chloride Flush 3 Ml Syringe) 3 ml IVFLUSH QSHIFT [facility] Last Admin: 11/15/24 01:11 Dose: Not Given Home Medications ?Medication ?Instructions ?Recorded ?Confirmed ?Last Taken ?Type ibuprofen 200 mg tablet (Advil) 400 mg PO Q6H PRN Pain 11/14/24 11/14/24 Unknown History Physical Exam 2 Vital Signs: Vital Signs: Last Vital Signs Temp 98.4 F 11/15/24 04:57 Pulse 78 11/15/24 04:57 Resp 19 11/15/24 04:57 BP 114/54 L 11/15/24 04:57 Pulse Ox 97 11/15/24 04:57 O2 Del Method Room Air 11/15/24 04:57 BMI result Body Mass Index 29.9 EXAM: GENERAL: The patient is well developed and nontoxic. VITAL SIGNS:see workflow HEENT: Nonicteric sclerae, PERRLA, EOMI. Oropharynx clear. Moist mucous membranes. Conjunctivae appear well perfused. No thyroid mass. CHEST: Chest wall is nontender. HEART: Regular rate and rhythm without murmurs. LUNGS: Clear to auscultation bilaterally. ABDOMEN: Soft, positive bowel sounds, nontender, no organomegaly.no flank tenderness SKIN: No rash, no excessive bruising, petechiae, or purpura. NEUROLOGIC: Cranial nerves II-XII intact without motor/sensory deficit. Psych: normal affect Results Labs 11/15/24 05:40 11/15/24 05:40 Labs: Short CBC 11/14/24 11/15/24 Range/Units 16:49 05:40 WBC 10.8 8.0 (4.8-10.8) X10*3/uL Hgb 9.9 L 9.1 L (14.0-18.0) g/dl Hct 30.0 L 27.6 L (42.0-52.0) % Plt Count 161 132 L (160-400) X10*3/uL BMP 11/14/24 16:49 Sodium 138 Potassium 4.5 Chloride 105 Carbon Dioxide 26 BUN 46 H Creatinine 0.78 Calcium 8.9 Liver Function 11/14/24 Range/Units 16:49 Total Bilirubin 0.1 (0.0-1.0) mg/dL Direct Bilirubin < 0.2 (0.0-0.5) mg/dL AST 18 (5-37) U/L ALT 18 (0-40) U/L Alkaline Phosphatase 58 (39-117) U/L Albumin 3.9 (3.5-5.0) g/dL Urine 11/14/24 Range/Units 16:49 Urine Color Yellow Urine Appearance Clear Urine pH 6.0 (5.0-9.0) Ur Specific [place] 1.010 (1.005-1.025) Urine Protein Negative (Neg-Trace) mg/dL Urine Glucose (UA) Negative (Negative) mg/dL Assessment and Plan (1) Acute upper GI bleed: Status: Acute Plan 1/ Acute blood loss anemia, possible PUD from NSAID use and alcohol binging PLAN: 1/ EGd today 2/ PPI IV BID 3/ IV fluids Procedures Date of Service Date of Service: 11/15/24
[2024-11-15 06:46] LABS: Anion Gap 9 (12-20); Blood Urea Nitrogen 26 mg/dL (9-16); Calcium 8.1 mg/dL (8.4-10.2); Carbon Dioxide 25 mmol/L (22-29); Chloride 109 mmol/L (96-108); Creatinine Clr Calc Pharmacy 116.6; Estimated Glomerular Filt Rate > 60; Glucose Random 97 mg/dL (60-115); Potassium 3.9 mmol/L (3.3-5.1); Sodium 139 mmol/L (135-145)
--- NOTE | 2024-11-15 09:39 | MHC.CM.PN ---
CM met with Patient at bedside. Patient lives in a house with his /HCP/Cherrie, his adult Son & adult Granddaughter and he required no services nor DME CHECK OUT CLERK. Home/self care is Patient's goal and CM has initiated and will follow for dc planning. PCP is Dr. Appiah Name and will transport to home at time of dc.
[2024-11-15] MEDS: Lactated Ringers 1,000 ML 50 ML IVCONT (14:25)
--- NOTE | 2024-11-15 14:57 | HO.ANESPROP2 ---
[facility] Active Problems Active Problems: All Active Problems (Updated 11/14/24 @ 19:02 by Yariel Gar) Signs and symptoms of anemia (Acute) Acute upper GI bleed (Acute) Nicotine dependence, cigarettes, uncomplicated (Acute) Past Medical History Medical History Hyperlipidemia Nicotine dependence, cigarettes, uncomplicated Family History Family History Mother Alzheimer disease Colon cancer Family history of problems with anesthesia: No Surgical History Surgical History Hx of left knee surgery Hx of colonoscopy History of Problems with Anesthesia: No Social History Social History Household Members: Spouse Housing: House Do you presently have visiting nurse or other home services: No Alcohol intake: current Alcohol intake frequency: a few times a week Patient Tobacco Use Status: Current everyday Tobacco user Tobacco use type: Cigarette Cigarette Packs Per Day: 1 Cigarettes Per Day: 20.0 Smoked in Last 30 Days: Yes Use of substances other than those prescribed or required for medical reasons: No Have you been hit, kicked, punched, or otherwise hurt by someone within the past year? If so, by whom?: No Do you feel safe in your current relationship?: Yes Is there a partner from a previous relationship who is making you feel unsafe now?: No Are you made to feel afraid or neglected: No Are you DNR?: No Advance Directives: No Advance Directives Information Provided: No Advance Directives on File: No Do you have a plan to hurt others: No Plan Recently lost weight without trying: Yes How much weight loss: 2-13 pounds Eating poorly because of decreased appetite: Yes Nutrition screen score: 4 Nutrition Risks: No Nutritional Risk Poor oral hygiene: No service: No Meds Allergies Allergy/AdvReac Type Severity Reaction Status Date / Time No Known Allergies Allergy Verified 11/14/24 16:35 Active Medications: Current Medications Acetaminophen (Acetaminophen 325 Mg Tablet) 650 mg PO Q6H PRN PRN Reason: Pain, Mild 1-3,fever,headache Calcium Carbonate (Calcium Carbonate 750 Mg Tab.Chew) 750 mg PO Q4H PRN PRN Reason: Heartburn Lactated Ringer's (Lr) 1,000 mls @ 125 mls/hr IVCONT .Q8H [facility] Last Infusion: 11/15/24 14:45 Dose: Infused Lactated Ringer's (Lr) 1,000 mls @ 50 mls/hr IVCONT .Q20H [facility] Last Admin: 11/15/24 14:25 Dose: 50 mls/hr Magnesium Hydroxide (Milk Of Magnesia 30 Ml Oral.Susp) 30 ml PO DAILY PRN PRN Reason: Constipation Melatonin (Melatonin 3 Mg Tablet) 6 mg PO BEDTIME PRN PRN Reason: Insomnia Nicotine (Nicotine 14 Mg Patch.Td24) 14 mg TRANSDERMA DAILY [facility] Last Admin: 11/14/24 19:50 Dose: 14 mg Ondansetron HCl (Ondansetron Hcl 4 Mg/2 Ml Vial) 4 mg IVPUSH Q8H PRN PRN Reason: Nausea and Vomiting Pantoprazole Sodium (Pantoprazole Sodium 40 Mg/10 Ml Vial) 40 mg IVPUSH BID@0630,1630 [facility] Last Admin: 11/15/24 05:39 Dose: 40 mg Sodium Chloride (0.9 % Sodium Chloride Flush 3 Ml Syringe) 3 ml IVFLUSH QSHIFT [facility] Last Admin: 11/15/24 08:17 Dose: Not Given Home Medications ?Medication ?Instructions ?Recorded ?Confirmed ?Last Taken ?Type ibuprofen 200 mg tablet (Advil) 400 mg PO Q6H PRN Pain 11/14/24 11/14/24 Unknown History Exam Height,Weight and Vital Signs: Height 5 ft 6 in Weight 81.8 kg Last Vital Signs Temp 98.5 F 11/15/24 14:18 Pulse 83 11/15/24 14:18 Resp 16 11/15/24 14:18 BP 131/56 L 11/15/24 14:18 Pulse Ox 99 11/15/24 14:18 O2 Del Method Room Air 11/15/24 14:18 Pertinent Lab Results Pertinent Lab Results: Laboratory Tests 11/14/24 11/14/24 11/14/24 16:48 16:49 18:44 WBC 10.8 RBC 3.33 L Hgb 9.9 L Hct 30.0 L MCV 90.1 MCH 29.7 MCHC 33.0 RDW 13.9 Plt Count 161 MPV 11.1 Immature Gran % (Auto) 0.4 Neut % (Auto) 52.9 Lymph % (Auto) 37.0 [place] % (Auto) 7.7 Eos % (Auto) 1.5 Baso % (Auto) 0.5 Lymph # (Auto) 4.0 [place] # (Auto) 0.8 Eos # (Auto) 0.2 Baso # (Auto) 0.1 Abs Immat Gran (auto) 0.04 H Absolute Neuts (auto) 5.7 Absolute Nucleated RBC 0.000 Nucleated RBC % (auto) 0.0 Sodium 138 Potassium 4.5 Chloride 105 Carbon Dioxide 26 Anion Gap 12 BUN 46 H Creatinine 0.78 Estim Creat Clear Calc 97.2 Estimated GFR > 60 Random Glucose 93 Calcium 8.9 Magnesium 1.9 Total Bilirubin 0.1 Direct Bilirubin < 0.2 AST 18 ALT 18 Alkaline Phosphatase 58 Troponin I High Sens < 2.7 Total Protein 6.0 L Albumin 3.9 Lipase 16 Urine Color Yellow Urine Appearance Clear Urine pH 6.0 Ur Specific [place] 1.010 Urine Protein Negative Urine Glucose (UA) Negative Urine Ketones Negative Urine Blood Negative Urine Nitrite Negative Ur Leukocyte Esterase Negative Stool Occult Blood POSITIVE Influenza Type A (PCR) NEGATIVE Influenza Type B (PCR) NEGATIVE RSV RNA Qual (PCR) NEGATIVE SARS-CoV-2 RNA (RT-PCR) NEGATIVE Blood Type O Positive Antibody Screen NEGATIVE 11/15/24 05:40 WBC 8.0 RBC 3.06 L Hgb 9.1 L Hct 27.6 L MCV 90.2 MCH 29.7 MCHC 33.0 RDW 13.7 Plt Count 132 L MPV 12.1 Immature Gran % (Auto) Neut % (Auto) Lymph % (Auto) [place] % (Auto) Eos % (Auto) Baso % (Auto) Lymph # (Auto) [place] # (Auto) Eos # (Auto) Baso # (Auto) Abs Immat Gran (auto) Absolute Neuts (auto) Absolute Nucleated RBC 0.000 Nucleated RBC % (auto) 0.0 Sodium 139 Potassium 3.9 Chloride 109 H Carbon Dioxide 25 Anion Gap 9 L BUN 26 H Creatinine 0.65 Estim Creat Clear Calc 116.6 Estimated GFR > 60 Random Glucose 97 Calcium 8.1 L D Magnesium Total Bilirubin Direct Bilirubin AST ALT Alkaline Phosphatase Troponin I High Sens Total Protein Albumin Lipase Urine Color Urine Appearance Urine pH Ur Specific [place] Urine Protein Urine Glucose (UA) Urine Ketones Urine Blood Urine Nitrite Ur Leukocyte Esterase Stool Occult Blood Influenza Type A (PCR) Influenza Type B (PCR) RSV RNA Qual (PCR) SARS-CoV-2 RNA (RT-PCR) Blood Type Antibody Screen Airway Mallampati Class: II TM Dist: >3cm Neck ROM: Full Partial: Upper and Lower Heart: rrr Lungs: cta Assessment and Plan Assessment Anesthesia Assessment: Anesthesia Plan Discussed and Chart Reviewed Final Anesthetic Review Family History of Problems with Anesthesia: No History of Problems with Anesthesia: No NPO: Yes ASA Class: III Final Preanesthetic Review: No Changes in Pt Med Stat, Meds/Allgs Chart Reviewed and Consent Obtained/Reviewed Patient Risk: Low Procedure Risk: Intermediate Anesthetic Plan Anesthetic Plan: MAC: Disposition: Standard PACU
--- NOTE | 2024-11-15 15:10 | W.PM.OPN ---
Operative Note Operative Note Date of Service: 11/15/24 Narrative: Procedure Description: EGD Indication: anemia Anesthesia: MAC FLEXIBLE TRANSORAL UPPER GASTROINTESTINAL ENDOSCOPY UPPER ENDOSCOPY Consent: Indications for the procedure and potential complications of bleeding, perforation, reaction to medications and missed diagnosis were discussed with the patient and informed consent was obtained. Instrument: Olympus GIF H 190 J mid size upper endoscope Monitoring: Vital signs and clinical assessment, continuous EKG monitoring, Pulse oximetry, Carbon Dioxide monitoring and blood pressure monitoring were done throughout the procedure. Procedure: The patient was placed in the left lateral decubitis position and pre-procedure medications were administered and a bite block was placed. The endoscope was inserted into the mouth and advanced under direct vision to the third part of duodenum. A careful inspection was made as the upper endoscope was withdrawn including a retroflexed examination of the proximal stomach; Findings and interventions are described below. Findings: Larynx:normal Esophagus: GE junction at 38 cm, diaphragm hiatus at 40 cm, consistent with 2 cm sliding hiatal hernia Stomach: mild gastritis . shallow ulcer noted near pylorus about 10 mm, Casa grade III, Biopsies were obtained to r/o h pylori. Grade 2 flap valve on retroflexed examination of the cardia. Duodenum: Normal bulb and descending duodenum, Intervention: Biopsies as noted above, Impression: hiatal hernia gastric ulcer PLAN: PPI daily if H pylori pos then treat reepat EGD 3-4 months -hold nsaids GERD precautions can go home today
--- NOTE | 2024-11-15 17:48 | PM.DS ---
DS: Providers Provider Date of Service: 11/15/24 Date of admission: 11/14/24 19:16 Date of discharge: 11/15/24 Primary care physician: Td Bautista MD Consults: 11/14/24 19:21 Consult to Gastroenterology Routine Consulting Provider: Katrin Mckeon Reason for consultation: Blood loss anemia DS: Diagnosis Discharge Diagnosis (1) Acute upper GI bleed: Status: Acute DS: Summary Hospital Course Hospital Course: From admission HPI: Date of Service: 11/14/24 Chief Complaint: Dizziness, black stools This has a 64-year-old male with pertinent history of tobacco use disorder who presents to the emergency department for evaluation of dizziness, black stools and shortness of breath. Patient states that on the morning of presentation he started having dizziness and lightheadedness. Also was having dyspnea which was worse with exertion. Patient states he noticed that he has been having black stools for the last 2 days. Does have symptoms of gastroesophageal reflux disease. No abdominal pain, nausea, vomiting. States he had a colonoscopy 10 years ago which was apparently normal. Does endorse taking naproxen 3 to 4 times a week and he has been taking it for more than a year. Denies significant alcohol use. Only drinks socially on the weekends. Never has had GI bleed in the past. No fever, chills, chest pain, palpitations, changes in urinary habits. Patient is Slovenian speaking and history obtained with the help of outside plant field engineer. In the emergency department, hemoglobin was found to be low at 9.9 and stool occult blood positive. Hospital course: Pt was admitted to the hospital for symptomatic anemia concerning for UGIB. Patient's H&H showing a drop from baseline at time of presentation (14.3 --> 9.9), but was stable during during hospital stay. Pt was treated with Protonix IV bid and underwent an EGD by Dr. Mckeon in GI which was negative for acute bleeding, though showed gastric ulcer and hiatal hernia. Biopsies were taken and are currently pending. Gastric ulcer likely secondary to NSAID use; pt without significant alcohol intake. Gi recommended placing pt on a PPI daily, following biopsies for H pylori testing, avoiding NSAID use, repeat EGD in 3-4 months' time, and pt ready to discharge later today. Pt tolerated the procedure well and had no acute complaints post up. Pt denied lightheadedness or dizziness, fatigue, or N/V/abdominal pain. Has been up and out of bed to the bathroom without symptoms. Denies shortness or breath or difficulty breathing. No chest pain/pressure, palpitations. Pt reports he feels fine and back to baseline. Has been able to tolerate a full diet. Pt was given the option of staying in the hospital for observation and repeat labs in the morning we are going home tonight. Pt chose the latter and is agreeable for discharge. For gastric ulcer Pt should take omeprazole 40 mg daily x8 weeks Avoid NSAIDs, including ibuprofen/Advil, naproxen Follow up with PCP in 1 week for repeat labs and routine post-hospitalization follow-up Follow up with GI outpatient in 2-4 weeks for biopsy results For nicotine dependence Smoking cessation counseled Time Attestation Discharge Coordination Time (in mins): 35 Quality: Safe Use of Opioids Does Pt have an Active Cancer Diagnosis on the Problem List?: No Quality: Stroke Does the patient have a stroke diagnosis?: No Physical Exam Vital Signs: Vital Signs: Last Vital Signs Temp 96.9 F 11/15/24 16:00 Pulse 80 11/15/24 16:00 Resp 16 11/15/24 16:00 BP 131/59 L 11/15/24 16:00 Pulse Ox 97 11/15/24 16:00 O2 Del Method Room Air 11/15/24 16:00 O2 Flow Rate 6 11/15/24 15:17 BMI result Body Mass Index 29.1 General: AOx3, no acute distress Resp: CTA bilaterally CVS: S1, S2, RRR GI: +BS, NT, no distention Skin: Warm, dry Neuro: Cranial nerves II-XII grossly intact bilaterally. Motor grossly intact bilaterally Extremities: No edema Psych: Appropriate affect DS: Data Data Completed and Pending Pending studies at discharge: Pending at discharge 11/15/24 15:09 Surgical [PTH] Routine Labs on day of discharge: Laboratory Results - last 24 hr 11/14/24 11/15/24 18:44 05:40 WBC 8.0 RBC 3.06 L Hgb 9.1 L Hct 27.6 L MCV 90.2 MCH 29.7 MCHC 33.0 RDW 13.7 Plt Count 132 L MPV 12.1 Absolute Nucleated RBC 0.000 Nucleated RBC % (auto) 0.0 Sodium 139 Potassium 3.9 Chloride 109 H Carbon Dioxide 25 Anion Gap 9 L BUN 26 H Creatinine 0.65 Estim Creat Clear Calc 116.6 Estimated GFR > 60 Random Glucose 97 Calcium 8.1 L D Stool Occult Blood POSITIVE Discharge Plan Discharge Anticipated Discharge Date/Time: 11/15/24 17:37 Patient Disposition: Home, Self-Care Discharge Diagnosis: Gastric ulcer Referrals: Name,MD Td [Primary Care Provider, Internal Medicine] - 1 Week Discharge Medications: New omeprazole 40 mg capsule,delayed release(DR/EC) 40 mg PO DAILY Qty: 56 0RF Rx Instructions: Take one capsule daily for the next 8 weeks for gastric ulcer Discontinued naproxen 500 mg tablet 500 mg PO BID PRN (Reason: pain) Qty: 20 0RF ibuprofen [Advil] 200 mg Tablet 400 mg PO Q6H PRN (Reason: Pain) Discharge Orders: Discharge Order (Routine); Ordered 11/15/24 Ordered By: Ava Carrillo Activity on Discharge: As tolerated Stand Alone Forms: Patient Portal Discharge page Print Language: Slovenian Care Plan Goals: Resolution of symptoms See below Health Concerns: Gastric ulcer GI bleed Plan of Treatment: Take omeprazole 40 mg daily for the next 8 weeks Avoid NSAIDS such as ibuprofen/Advil, naproxen Follow up with PCP in one week for repeat labs and routine post-hospital follow up Follow up with Dr. Mckeon in GI for biopsy results in 2-4 weeks Will require repeat EGD in 3-4 months Assessment: See discharge summary Discharge Date/Time: 11/15/24 18:16
== END 2024-11-15 18:16 | disposition home or self-care (01) | DRG 241 ==
LOC: HO.ED 19:10 → HO.EDOVER 19:44 → HO.IMC 11-15 07:33
PROVIDERS: Internal Medicine Gastroenterology; Physician Assistant; Physician Assistant Medical; Admitting Provider Student in an Organized Health Care Education/Training Program; Emergency Provider Internal Medicine; PCP Internal Medicine Geriatric Medicine; Visit Provider Student in an Organized Health Care Education/Training Program
PROC: 0DJ08ZZ Inspection of Upper Intestinal Tract, Via Natural or Artificial Opening Endoscopic (ICD-10-PCS; CPT 43235; principal; 2024-11-15 15:20)
DX: K25.4 Chronic or unspecified gastric ulcer with hemorrhage (principal); F17.210 Nicotine dependence, cigarettes, uncomplicated; D62 Acute posthemorrhagic anemia; K44.9 Diaphragmatic hernia without obstruction or gangrene; Z20.822 Contact with and (suspected) exposure to COVID-19; Z71.6 Tobacco abuse counseling; Z79.899 Other long term (current) drug therapy
CPT/HCPCS: 0241U; 36415; 80048; 80076; 81003; 82272; 83690; 83735; 84484; 85025; 85027; 86850; 86900; 86901; 88305; 88313; 88342; 93005; 99285; J2003; J2470; J2704; J7120

== ENCOUNTER → 2024-11-14 16:34 | Outpatient (BNV) | payer OTHER, SELFPAY | PROVIDERS: Admitting Provider Student in an Organized Health Care Education/Training Program; Emergency Provider Internal Medicine; PCP Internal Medicine Geriatric Medicine; Visit Provider Internal Medicine | DX: R42 Dizziness and giddiness (principal) | CPT/HCPCS: 93010 ==

== ENCOUNTER → 2024-11-14 17:14 | Outpatient (BNV) | payer OTHER, SELFPAY | PROVIDERS: Emergency Provider Internal Medicine; PCP Internal Medicine Geriatric Medicine; Visit Provider Student in an Organized Health Care Education/Training Program | DX: K92.2 Gastrointestinal hemorrhage, unspecified (principal); R68.89 Other general symptoms and signs | CPT/HCPCS: 99222; 99239 ==

== ENCOUNTER → 2024-11-14 19:16 | Outpatient (BNV) | payer OTHER, SELFPAY | PROVIDERS: Admitting Provider Student in an Organized Health Care Education/Training Program; Emergency Provider Internal Medicine; PCP Internal Medicine Geriatric Medicine; Visit Provider Internal Medicine Gastroenterology | DX: K92.2 Gastrointestinal hemorrhage, unspecified (principal); K29.70 Gastritis, unspecified, without bleeding; K25.9 Gastric ulcer, unspecified as acute or chronic, without hemorrhage or perforation | CPT/HCPCS: 43239; 99232 ==

== ENCOUNTER 2024-11-18 16:33 | Inpatient (IN) | payer OTHER, SELFPAY ==
[2024-11-18] VITALS (7 sets, daily range): BP systolic 107–128; BP diastolic 49–65; PULSE 87–107; RESP 16–24; TEMP 37.2–37.5; O2SAT 96–98; BMI 29.7
--- NOTE | ~2024-11-18 | CT_ITS ---
EXAMINATION: CT ABDOMEN AND PELVIS WITHOUT CONTRAST CLINICAL INFORMATION: Concerning retroperitoneal hemorrhage. COMPARISON: None available. TECHNIQUE: Multidetector volumetric imaging was performed from the superior aspect of the liver through the pubic symphysis. Sagittal and coronal reformatted images were obtained on the technologist's workstation. This CT examination was performed using dose optimization techniques as appropriate, variously including the following: *Automated exposure control *Adjustment of mA and/or kV according to patient size (this includes techniques or standardized protocols for targeted exams where dose is matched to indication/reason for exam; i.e. extremities or head) *Use of iterative reconstruction technique. DLP: 493 mGy centimeter. FINDINGS: Inadequate evaluation of the intra-abdominal organs and vascular structures due to lack of IV contrast. LUNG BASES: Atelectasis lung bases. Trace of pleural effusions, bilaterally. LIVER, GALLBLADDER, AND BILIARY TREE: Liver measures 14 cm. Subtle nodular surface. Focal punctate calcification, inferior right hepatic lobe near the gallbladder fossa region. No pericholecystic fluid collection or gallbladder wall thickening. Gallbladder is contracted. No intrahepatic or extrahepatic biliary ductal dilatation. PANCREAS: No peripancreatic fluid collection. No main pancreatic ductal dilatation. SPLEEN: 9 cm. ADRENAL GLANDS: No nodular lesions. KIDNEYS AND URETERS: No hydronephrosis. No nephrolithiasis. BLADDER: Fluid-filled. GASTROINTESTINAL TRACT: Appendix is normal. Numerous diverticula, sigmoid colon. Abundant stool. No intestinal obstruction pattern. No pneumatosis intestinalis. No intestinal wall thickening No ascites. No pneumoperitoneum. Small hiatal hernia. ABDOMINAL WALL: Small fat-containing hernia. LYMPH NODES: Prominent, nonspecific lymph nodes in the retroperitoneum and nikolas iliac VASCULAR: Mixed plaques throughout the abdominal aorta wall and iliac arteries. No aneurysm, abdominal aorta. Ectatic common iliac arteries. Calcified plaques in the coronary arteries. Calcifications in the mitral valve.. PELVIC VISCERA: Nonenlarged prostate gland. OSSEOUS STRUCTURES: Multilevel spondylosis. Questionable old traumatic deformity of the coccyx. No acute fracture or dislocation in either hip. Sclerosis and the sacroiliac joints. CT/CT abdomen pelvis wo IV con IMPRESSION: No retroperitoneal hematoma. Diverticular disease, sigmoid colon. Abundant stool without intestinal obstruction pattern. Coronary artery disease and atherosclerosis disease. Fleischner guidelines were followed. Electronically signed by: Charli Galindo MD 11/19/2024 07:57 AM EDT RP
--- NOTE | 2024-11-18 16:42 | ED_ITS ---
HPI - General Adult General Chief complaint: Recheck/Abnormal Lab/Rx Stated complaint: abnormal labs Time Seen by Provider: 11/18/24 17:05 Source: patient Mode of arrival: ambulatory Limitations: no limitations History of Present Illness ED Provider: HPI narrative: Patient is 64 years old with history of smoking and upper GI bleed second-degree to use of NSAIDs head upper endoscopy done on 11/14 which showed nonbleeding shallow ulcer noted near pylorus patient is started on PPI omeprazole 40 mg daily patient comes here as PCP the repeat blood count in noted to have hemoglobin of 5 patient's feels slight short of breath and weak with slight lightheadedness other than that patient has a normal bowel movements no abdominal pain patient's baseline H&H is 14.3/44 today it was 7.2/21.9 Related Data Home Medications ?Medication ?Instructions ?Recorded ?Confirmed omeprazole 40 mg capsule,delayed 40 mg PO DAILY@0630 0 11/18/24 11/18/24 release Allergies Allergy/AdvReac Type Severity Reaction Status Date / Time No Known Allergies Allergy Verified 11/18/24 16:45 Review of Systems 2 Review of Systems: Yes all other systems are reviewed and are negative PMFSH Past Medical History Medical History Hyperlipidemia Nicotine dependence, cigarettes, uncomplicated Surgical History Hx of left knee surgery Hx of colonoscopy Family History Family History Mother Alzheimer disease Colon cancer Social History Social History Household Members: Spouse Housing: House Do you presently have visiting nurse or other home services: No Alcohol intake: current Alcohol intake frequency: a few times a week Patient Tobacco Use Status: Current everyday Tobacco user Tobacco use type: Cigarette Cigarette Packs Per Day: 1 Cigarettes Per Day: 20.0 Advance Directives: No Advance Directives Information Provided: No Do you have a plan to hurt others: No Plan service: No Physical Exam ED Vital Signs: Vital Signs - 24 hr 11/18/24 16:43 11/18/24 17:55 11/18/24 18:47 Temperature 99.1 F 99.5 F 99.2 F Pulse Rate 107 H 97 92 Respiratory Rate 18 24 H 18 Blood Pressure 124/49 L 107/49 L 122/60 Pulse Oximetry 96 98 98 Oxygen Delivery Method Room Air Room Air Room Air 11/18/24 18:57 11/18/24 19:15 Temperature 99.2 F 99.4 F Pulse Rate 92 89 Respiratory Rate 22 H 20 Blood Pressure 122/59 L 128/65 Pulse Oximetry Oxygen Delivery Method BMI result Body Mass Index 29.7 Appearance: Alert. Oriented X3. No acute distress. Eyes: Pallor++ no icterus ENT: Pharynx normal. Oral Mucosa moist Neck: Normal inspection. Neck supple. CVS: Normal heart rate and rhythm. Pulses normal. Respiratory: No respiratory distress. Equal air entry bilateral, no wheezing/rales/rhonchi Abdomen: Soft and nontender. Bowel sounds are present, no mass palpable, no CVA tenderness Skin: Skin warm and dry. Normal skin color. Normal skin turgor. Extremities: No lower extremity edema. No calf tenderness Neuro: Oriented X 3. No motor deficit. Course Course Course Narrative: RME performed by Rosalind Zheng PA-C. Patient is a 64 year old assigned male at presenting to the emergency department with a hemoglobin of 5. Patient states that he was recently admitted for upper GI bleeding and at [facility] today his hemoglobin was 5. Detailed physical exam and review of systems are deferred to the bilingual teacher assistant. EKG, labs ordered. Patient placed back in the waiting room pending room availability and results. Medications Administered Generic Name Dose Route Start Last Admin Trade Name Freq PRN Reason Stop Dose Admin Sodium Chloride 3 ml 11/19/24 00:00 11/19/24 01:05 0.9 % Sodium Chloride Flush 3 Ml Syringe IVFLUSH 3 ml QSHIFT GERONIMO Administration Discontinued Medications Generic Name Dose Route Start Last Admin Trade Name Freq PRN Reason Stop Dose Admin Pantoprazole Sodium 80 mg 11/18/24 20:28 11/18/24 22:29 Pantoprazole Sodium 40 Mg/10 Ml Vial IVPUSH 11/18/24 20:29 80 mg ONCE ONE Administration Medical Decision Making Medical Decision Making MDM Narrative: Patient with significant iron-deficiency anemia from interpreted blood loss with prior history of NSAID use recent endoscopy showed nonbleeding pyloric ulcer patient is still smokes and had few beers likely having intermittent bleeding. Already on PPI. Will admit patient for acute blood loss received 1 unit of blood transfusion in the ER Differential Diagnosis Differential Diagnoses: The differential diagnosis associated with the presentation includes Admission/Observation Consideration of admission/observation: Escalation of care including admission/observation considered Consult Healthcare Provider Management of the patient was discussed with: Hospitalist Patient is noted to have significant drop in H&H after endoscopy which was done on 11/14 no melena at this time and guaiac is negative will give 1 unit of blood transfusion Lab Data MDM Lab Attestation statement: I reviewed the patient's lab results. 11/18/24 17:08 11/18/24 17:08 Labs: Lab Results 11/18/24 11/18/24 Range/Units 17:08 17:54 WBC 9.1 (4.8-10.8) X10*3/uL RBC 2.37 L D (4.60-5.80) X10*6/uL Hgb 7.2 L D (14.0-18.0) g/dl Hct 21.9 L D (42.0-52.0) % MCV 92.4 (80.0-98.0) fL MCH 30.4 (27.0-33.0) pg MCHC 32.9 (31.0-36.0) g/dl RDW 14.8 (11.0-16.0) % Plt Count 162 (160-400) X10*3/uL MPV 11.9 (9.4-12.4) fL Immature Gran % (Auto) 0.4 (0.0-0.4) % Neut % (Auto) 55.7 (45-73) % Lymph % (Auto) 30.8 (20-40) % [place] % (Auto) 10.2 (2-11) % Eos % (Auto) 2.4 (0-4) % Baso % (Auto) 0.5 (0-2) % Lymph # (Auto) 2.8 (1.2-4.9) X10*3/uL [place] # (Auto) 0.9 (0.1-1.2) X10*3/uL Eos # (Auto) 0.2 (0.0-0.4) X10*3/uL Baso # (Auto) 0.1 (0.0-0.2) X10*3/uL Abs Immat Gran (auto) 0.04 H (0.00-0.03) X10*3/uL Absolute Neuts (auto) 5.1 (2.0-8.3) x10*3/uL Absolute Nucleated RBC 0.000 (0.0-0.012) X10*3/uL Nucleated RBC % (auto) 0.0 (0.0-0.2) /100WBC PT 11.2 (10.9-12.4) SEC INR 1.0 (0.9-1.1) Sodium 139 (135-145) mmol/L Potassium 4.1 (3.3-5.1) mmol/L Chloride 108 (96-108) mmol/L Carbon Dioxide 23 (22-29) mmol/L Anion Gap 12 (12-20) BUN 19 H (9-16) mg/dL Creatinine 1.00 (0.5-1.4) mg/dL Estim Creat Clear Calc 75.6 Estimated GFR > 60 Random Glucose 157 H (60-115) mg/dL Calcium 8.1 L (8.4-10.2) mg/dL Magnesium 2.1 (1.6-2.6) mg/dL Iron 30 L (45-160) mcg/dL TIBC 251 (228-428) mcg/dL % Saturation 12 L (15-50) % Unsat Iron Binding 221 ug/dL Total Bilirubin 0.1 (0.0-1.0) mg/dL AST 29 (5-37) U/L ALT 13 (0-40) U/L Alkaline Phosphatase 64 (39-117) U/L Total Protein 6.0 L (6.5-8.0) g/dL Albumin 3.7 (3.5-5.0) g/dL Stool Occult Blood NEGATIVE (NEGATIVE) Blood Type O Positive Antibody Screen NEGATIVE Crossmatch See Detail Independent Interpretation I performed an independent interpretation of an: EKG Interpretation: Normal sinus rhythm heart rate 98 beats per minute normal interval normal axis no acute ST-T no acute ischemia Discharge Plan Discharge Clinical Impression: Signs and symptoms of anemia, GI (gastrointestinal bleed) Patient Disposition: Admitted As Inpatient
--- NOTE | 2024-11-18 16:45 | ECG_ITS ---
Test Reason : ABD LABS Blood Pressure : */* mmHG Vent. Rate : 98 BPM Atrial Rate : 98 BPM P-R Int : 118 ms QRS Dur : 70 ms QT Int : 334 ms P-R-T Axes : 72 49 30 degrees QTcB Int : 426 ms Normal sinus rhythm Normal ECG When compared with ECG of 14-Nov-2024 16:37, No significant change was found Referred By: Rosalind Zheng Electronically Signed By: VIDYA VALLES MD
[2024-11-18 17:14] LABS: MANUAL DIFF FLAG NO
[2024-11-18 17:21] LABS: INTERNATIONAL NORM RATIO 1.0 (0.9-1.1); Prothrombin Time 11.2 SEC (10.9-12.4)
[2024-11-18 17:24] LABS: Hematocrit 21.9 % (42.0-52.0); Hemoglobin 7.2 g/dl (14.0-18.0); Imm Gran Abs Auto 0.04 X10*3/uL (0.00-0.03); Imm Gran Pct Auto 0.4 % (0.0-0.4); Lymphocytes Absolute Auto 2.8 X10*3/uL (1.2-4.9); Mean Corpuscular HGB Conc 32.9 g/dl (31.0-36.0); Mean Corpuscular Hemoglobin 30.4 pg (27.0-33.0); Mean Corpuscular Volume 92.4 fL (80.0-98.0); NRBC Abs Auto 0.000 X10*3/uL (0.0-0.012); NRBC Pct Auto 0.0 /100WBC (0.0-0.2); Platelet Count 162 X10*3/uL (160-400); Red Blood Count 2.37 X10*6/uL (4.60-5.80); White Blood Count 9.1 X10*3/uL (4.8-10.8)
[2024-11-18 17:36] LABS: Alanine Aminotransferase 13 U/L (0-40); Albumin Level 3.7 g/dL (3.5-5.0); Alkaline Phosphatase 64 U/L (39-117); Anion Gap 12 (12-20); Aspartate Amino Transferase 29 U/L (5-37); Blood Urea Nitrogen 19 mg/dL (9-16); Calcium 8.1 mg/dL (8.4-10.2); Carbon Dioxide 23 mmol/L (22-29); Chloride 108 mmol/L (96-108); Creatinine Clr Calc Pharmacy 75.6; Estimated Glomerular Filt Rate > 60; Magnesium 2.1 mg/dL (1.6-2.6); Potassium 4.1 mmol/L (3.3-5.1); Sodium 139 mmol/L (135-145); Total Protein 6.0 g/dL (6.5-8.0)
[2024-11-18 18:02] LABS: OBS Int Ctl Valid YES; OBS Lot 0124; OBS1 NEGATIVE (NEGATIVE)
--- NOTE | 2024-11-18 19:09 | PC.NURSE ---
patient w/ bilateral 20IVs. first unit of blood infusing w/out incident. patient w/ no signs/symptoms of distress noted. resting quietly in room with call lopes within reach - visitor at bedside
--- NOTE | 2024-11-18 19:41 | PC.NURSE ---
Assumed care of pt, pt lying on stretcher denies c/o's blood transfusion infusing as ordered.
--- NOTE | 2024-11-18 20:45 | PHA.MEDREC ---
Pharmacy Consult ? Medication Reconciliation Pharmacy has completed the medication reconciliation. Patient discharged aprroximately 3 days ago. only on omeprazole.
--- NOTE | 2024-11-18 21:49 | PM.IMHP ---
History of Present Illness Date of Service: 11/18/24 Chief Complaint: Generalized weakness 66-year-old male with a past medical history of tobacco dependence, arthritis, recent admission to the hospital for anemia secondary to GI bleed; presented to the hospital today with a chief complaint of generalized weakness. Patient was discharged from the hospital on 11/15/2024 after being managed for anemia secondary to GI bleed status post EGD on 11/14/2024 which showed gastric ulcer/hiatal hernia. Patient mentioned that he had routine visit to the PCP for follow-up and had blood work done which showed hemoglobin of 5->asked him to go to the ER for further evaluation. Denies any signs of bleeding. Denies any chest pain or palpitations. Denies any GI symptoms. Review of all other systems is negative except mentioned above ER course: Per ER team, patient's exam was benign; stool guaiac was negative; patient's hemoglobin on discharge was 9.9; hemoglobin on presentation is 7.1. Being ordered for 1 unit of PRBC. [facility] Medical History Hyperlipidemia Nicotine dependence, cigarettes, uncomplicated Family History Mother Alzheimer disease Colon cancer Surgical History Hx of left knee surgery Hx of colonoscopy Social History Household Members: Spouse Housing: House Do you presently have visiting nurse or other home services: No Alcohol intake: current Alcohol intake frequency: a few times a week Patient Tobacco Use Status: Current everyday Tobacco user Tobacco use type: Cigarette Cigarette Packs Per Day: 1 Cigarettes Per Day: 20.0 Advance Directives: No Advance Directives Information Provided: No Do you have a plan to hurt others: No Plan service: No Meds Allergies Allergy/AdvReac Type Severity Reaction Status Date / Time No Known Allergies Allergy Verified 11/18/24 16:45 Active Medications: Current Medications Acetaminophen (Acetaminophen 325 Mg Tablet) 650 mg PO Q6H PRN PRN Reason: Pain, Mild 1-3,fever,headache Calcium Carbonate (Calcium Carbonate 750 Mg Tab.Chew) 750 mg PO Q4H PRN PRN Reason: Heartburn Magnesium Hydroxide (Milk Of Magnesia 30 Ml Oral.Susp) 30 ml PO DAILY PRN PRN Reason: Constipation Melatonin (Melatonin 3 Mg Tablet) 6 mg PO BEDTIME PRN PRN Reason: Insomnia Pantoprazole Sodium (Pantoprazole Sodium 40 Mg/10 Ml Vial) 40 mg IVPUSH DAILY@629 [facility] Sodium Chloride (0.9 % Sodium Chloride Flush 3 Ml Syringe) 3 ml IVFLUSH QSHIFT [facility] Home Medications ?Medication ?Instructions ?Recorded ?Confirmed ?Last Taken ?Type omeprazole 40 mg capsule,delayed 40 mg PO DAILY@62911/18/24 11/18/24 Unknown History release Physical Exam Vital Signs and Narrative: Vital Signs: Last Vital Signs Temp 99.5 F 11/18/24 21:12 Pulse 87 11/18/24 21:12 Resp 16 11/18/24 21:12 BP 121/62 11/18/24 21:12 Pulse Ox 97 11/18/24 20:31 O2 Del Method Room Air 11/18/24 20:31 BMI result Body Mass Index 29.7 Gen: Appears be in no acute distress HEENT: NCAT, Moist mucosa. Pulmonary: Vesicular breath sounds, fair air entry CVS: Normal S1-S2 Abdomen: BS+, Soft, Nontender Extremities: Warm well perfused Neuro: Alert and awake. Results Labs 11/18/24 17:08 11/18/24 17:08 Labs: Laboratory Results - last 24 hr 11/18/24 11/18/24 17:08 17:54 MCV 92.4 MCH 30.4 MCHC 32.9 RDW 14.8 Plt Count 162 MPV 11.9 Immature Gran % (Auto) 0.4 Neut % (Auto) 55.7 Lymph % (Auto) 30.8 [place] % (Auto) 10.2 Eos % (Auto) 2.4 Baso % (Auto) 0.5 Lymph # (Auto) 2.8 [place] # (Auto) 0.9 Eos # (Auto) 0.2 Baso # (Auto) 0.1 Abs Immat Gran (auto) 0.04 H Absolute Neuts (auto) 5.1 Absolute Nucleated RBC 0.000 Nucleated RBC % (auto) 0.0 PT 11.2 INR 1.0 Anion Gap 12 Estim Creat Clear Calc 75.6 Estimated GFR > 60 Random Glucose 157 H Calcium 8.1 L Magnesium 2.1 Total Bilirubin 0.1 AST 29 ALT 13 Alkaline Phosphatase 64 Total Protein 6.0 L Albumin 3.7 Stool Occult Blood NEGATIVE Blood Type O Positive Antibody Screen NEGATIVE Crossmatch See Detail Assessment and Plan (1) Signs and symptoms of anemia: Status: Acute Plan 66-year-old male with a past medical history of tobacco dependence, arthritis, recent admission to the hospital for anemia secondary to GI bleed; presented to the hospital today with a chief complaint of generalized weakness/low hemoglobin on outpatient labs. Anemia: Patient's hemoglobin was 5 on outpatient labs. Hemoglobin time of discharge was 9. Hemoglobin presentation to the ER was 1.1 Stool guaiac was negative in the ER as per the ER physician EGD on 11/14 showed gastric ulcer/hiatal hernia. Biopsies were sent. Patient being ordered for 1 unit of PRBC Supportive care Will obtain iron studies GI consult follow-up IV PPI CT abdomen pelvis to rule out retroperitoneal hemorrhage DVT prophylaxis: SCD boots Code status: Full code Quality Stroke Does the patient have a stroke diagnosis?: No VTE Prior VTE?: No VTE Risk Level:: Medical - moderate - high VTE Device Contraindication: Treatment Not Indicated VTE Drug Contraindication: N/A - Med Ordered
[2024-11-19] VITALS (12 sets, daily range): BP systolic 105–135; BP diastolic 49–65; PULSE 71–92; RESP 14–21; TEMP 36.2–37.5; O2SAT 96–100
[2024-11-19 00:06] LABS: Iron 30 mcg/dL (45-160); Percent Iron Saturation 12 % (15-50); Total Iron Binding Capacity 251 mcg/dL (228-428); Unsaturated Iron Binding 221 ug/dL
[2024-11-19] MEDS: 0.9 % Sodium Chloride Flush 3 ML SYRINGE IVFLUSH ×2 (01:05→16:50)
--- NOTE | 2024-11-19 01:18 | PC.NURSE ---
assumed care for pt at this time. pt lying in stretcher sleeping, symmetrical rise and fall of chest and unlabored respirations noted. pt is on desk monitor, vital signs updated and stable, iv flushed and patent no fluids running at this time. pt in no notable distress. call lopes within reach. plan of care ongoing
[2024-11-19 05:24] LABS: MANUAL DIFF FLAG NO
[2024-11-19 05:25] LABS: Hematocrit 26.3 % (42.0-52.0); Hemoglobin 8.8 g/dl (14.0-18.0); Imm Gran Abs Auto 0.04 X10*3/uL (0.00-0.03); Imm Gran Pct Auto 0.4 % (0.0-0.4); Lymphocytes Absolute Auto 2.8 X10*3/uL (1.2-4.9); Mean Corpuscular HGB Conc 33.5 g/dl (31.0-36.0); Mean Corpuscular Hemoglobin 29.7 pg (27.0-33.0); Mean Corpuscular Volume 88.9 fL (80.0-98.0); NRBC Abs Auto 0.000 X10*3/uL (0.0-0.012); NRBC Pct Auto 0.0 /100WBC (0.0-0.2); Platelet Count 165 X10*3/uL (160-400); Red Blood Count 2.96 X10*6/uL (4.60-5.80); White Blood Count 9.2 X10*3/uL (4.8-10.8)
[2024-11-19 05:37] LABS: Hemoglobin A1C 85.0329 umol/L; Total Hemoglobin (HGBA1C) 2316.9597 umol/L
[2024-11-19 05:48] LABS: Alanine Aminotransferase 12 U/L (0-40); Albumin Level 3.7 g/dL (3.5-5.0); Alkaline Phosphatase 65 U/L (39-117); Anion Gap 11 (12-20); Aspartate Amino Transferase 23 U/L (5-37); Blood Urea Nitrogen 12 mg/dL (9-16); Calcium 8.3 mg/dL (8.4-10.2); Carbon Dioxide 25 mmol/L (22-29); Chloride 109 mmol/L (96-108); Cholesterol 165 mg/dL (<200); Creatinine Clr Calc Pharmacy 98.2; Estimated Glomerular Filt Rate > 60; HDL Cholesterol 28 mg/dL (>40); Potassium 4.0 mmol/L (3.3-5.1); Sodium 141 mmol/L (135-145); Total Protein 5.9 g/dL (6.5-8.0); Triglycerides 136 mg/dL (<150)
[2024-11-19 06:03] LABS: Thyroid Stimulating Hormone 2.97 uIU/mL (0.32-4.0)
[2024-11-19 06:13] LABS: Folate 12.4 ng/mL (> or = 4.0); Vitamin B12 303 pg/mL (200-900)
--- NOTE | 2024-11-19 07:10 | PC.NURSE ---
assumed care of patient at 0700, patient is awake and alert, resp even and unlabored. patient states he feels better today. sitting up and eating breakfast. at bedside. VSS
--- NOTE | 2024-11-19 11:26 | P.CNGI_ITS ---
History of Present Illness Data of Consult Service Date: 11/19/24 Primary Care Provider: Td Bautista MD HPI Reason for consult: anemia 66-year-old male with a past medical history of tobacco dependence, arthritis, recent admission to the hospital for anemia secondary to GI bleed thought to be due to gastric ulcer who I am seeing for anemia HE presented with malaise and weakness, PCP had checked HGB and it was low, rechecked here and it was HGB 7 g/dl having been 10 g/dl on d/c 11/15/24. He denies melena, rectal bleeding, abdominal pain, nausea or vomiting. On his last presentation he had melena. He received 1 unit of PRBC and is feeling much better and requesting to go home. denies nsaids, no alcohol or drugs, EGD 11/15/24 pos for H pylori --not treated yet Review of Systems 2 Review of Systems: Constitutional : No Weight loss, No Fever, No Chills ENT/Mouth : No sore throat, No Rhinorrhea Eyes: No Swelling, No Redness Cardiovascular : No Chest Pain, No SOB, No Edema Respiratory : No Cough, No Sputum, No Wheezing Gastrointestinal : see HPI Genitourinary : NO Dysuria, No Urinary Frequency, No Hematuria, No Urgency Musculoskeletal :no joint pain, No Myalgias, No Joint Swelling Skin : No Skin Lesions, No rash Neuro : No Weakness, No Numbness, No Dizziness, No Headache Psych : No Anxiety/Panic, No Depression Heme/Lymph: No Bruising, No Lymphadenopathy Endocrine : No Polyuria, No Polydipsia All other systems reviewed and are negative. [facility] Past Medical History Medical History Hyperlipidemia Nicotine dependence, cigarettes, uncomplicated Family History Family History Mother Alzheimer disease Colon cancer Surgical History Surgical History Hx of left knee surgery Hx of colonoscopy Social History Social History Household Members: Spouse Housing: House Do you presently have visiting nurse or other home services: No Alcohol intake: current Alcohol intake frequency: a few times a week Patient Tobacco Use Status: Current everyday Tobacco user Tobacco use type: Cigarette Cigarette Packs Per Day: 1 Cigarettes Per Day: 20.0 service: No Meds Allergies Allergy/AdvReac Type Severity Reaction Status Date / Time No Known Allergies Allergy Verified 11/18/24 16:45 Active Medications: Current Medications Acetaminophen (Acetaminophen 325 Mg Tablet) 650 mg PO Q6H PRN PRN Reason: Pain, Mild 1-3,fever,headache Calcium Carbonate (Calcium Carbonate 750 Mg Tab.Chew) 750 mg PO Q4H PRN PRN Reason: Heartburn Magnesium Hydroxide (Milk Of Magnesia 30 Ml Oral.Susp) 30 ml PO DAILY PRN PRN Reason: Constipation Melatonin (Melatonin 3 Mg Tablet) 6 mg PO BEDTIME PRN PRN Reason: Insomnia Pantoprazole Sodium (Pantoprazole Sodium 40 Mg/10 Ml Vial) 40 mg IVPUSH DAILY@629 [facility] Last Admin: 11/19/24 06:30 Dose: 40 mg Sodium Chloride (0.9 % Sodium Chloride Flush 3 Ml Syringe) 3 ml IVFLUSH QSHIFT [facility] Last Admin: 11/19/24 07:34 Dose: Not Given Home Medications ?Medication ?Instructions ?Recorded ?Confirmed ?Last Taken ?Type omeprazole 40 mg capsule,delayed 40 mg PO DAILY@0630 0 11/18/24 11/18/24 Unknown History release Physical Exam 2 Vital Signs: Vital Signs: Last Vital Signs Temp 98.1 F 11/19/24 11:06 Pulse 72 11/19/24 11:06 Resp 15 11/19/24 11:06 BP 109/49 L 11/19/24 11:06 Pulse Ox 98 11/19/24 11:06 O2 Del Method Room Air 11/19/24 11:06 BMI result Body Mass Index 29.7 EXAM: GENERAL: The patient is well developed and nontoxic. VITAL SIGNS:see workflow HEENT: Nonicteric sclerae, PERRLA, EOMI. Oropharynx clear. Moist mucous membranes. Conjunctivae appear well perfused. No thyroid mass. CHEST: Chest wall is nontender. HEART: Regular rate and rhythm without murmurs. LUNGS: Clear to auscultation bilaterally. ABDOMEN: Soft, positive bowel sounds, nontender, no organomegaly.no flank tenderness SKIN: No rash, no excessive bruising, petechiae, or purpura. NEUROLOGIC: Cranial nerves II-XII intact without motor/sensory deficit. Psych: normal affect Results Labs 11/19/24 05:12 11/19/24 05:12 Labs: Short CBC 11/18/24 11/19/24 Range/Units 17:08 05:12 WBC 9.1 9.2 (4.8-10.8) X10*3/uL Hgb 7.2 L D 8.8 L D (14.0-18.0) g/dl Hct 21.9 L D 26.3 L D (42.0-52.0) % Plt Count 162 165 (160-400) X10*3/uL BMP 11/18/24 11/19/24 17:08 05:12 Sodium 139 141 Potassium 4.1 4.0 Chloride 108 109 H Carbon Dioxide 23 25 BUN 19 H 12 Creatinine 1.00 0.77 Calcium 8.1 L 8.3 L Liver Function 11/18/24 11/19/24 Range/Units 17:08 05:12 Total Bilirubin 0.1 0.3 (0.0-1.0) mg/dL AST 29 23 (5-37) U/L ALT 13 12 (0-40) U/L Alkaline Phosphatase 64 65 (39-117) U/L Albumin 3.7 3.7 (3.5-5.0) g/dL Assessment and Plan (1) GI (gastrointestinal bleed): Qualifiers: GI bleed type/associated pathology: gastric ulcer Qualified Code(s): K 25.4 - Chronic or unspecified gastric ulcer with hemorrhage Status: Acute Plan 1/ Acute anemia, but no overt manifestation unlike a week ago. Recent EGD with gastric ulcer, bx pos for H pylori PLAN: /1- recommend repeat EGD and colonoscopy r/o other causes. 2/ He was unsure about staying and was asking about early o/p. I recommended in patient but if he insists then we can try to bring him back as early o/p EGD, colo--he will let me know what he wants to do, provisionally on schedule for tomorrow 3/ treatment of H pylori after repeat procedures 4/ BID dosing PPI e.g pantoprazole 20 mg BID Procedures Date of Service Date of Service: 11/19/24
--- NOTE | 2024-11-19 12:33 | MHC.CM.PN ---
[facility] DELIVERED PT LIVES WITH SPOUSE AND IS FUNCTIONALLY INDEP, EMPLOYED F/T. NO SERVICES OR DME. DECLINES COMPLETING A HCP AT THIS TIME. PCP DR. BARRIOS AT [facility]. DP: HOME, NO SERVICES ANTICIPATED. PT'S SPOUSE WILL TRANSPORT. CM WILL CONTINUE TO FOLLOW FOR ANY CHANGE TO PLAN/NEEDS.
--- NOTE | 2024-11-19 14:26 | P.PNIM_ITS ---
Subjective Subjective Date of Service: 11/19/24 Interval History: no copmlaints Physical Exam 2 Vital Signs: Vital Signs: Last Vital Signs Temp 97.9 F 11/19/24 13:09 Pulse 83 11/19/24 13:09 Resp 16 11/19/24 13:09 BP 126/61 11/19/24 13:09 Pulse Ox 98 11/19/24 13:09 O2 Del Method Room Air 11/19/24 13:09 BMI result Body Mass Index 29.7 General: AO X 3, no acute distress Resp: CTA bilateral, no accessory muscles used CVS: S1,S2,RRR GI: soft, non tender, non distended Neuro: motor grossly intact, alert Psych: appropriate affect, appropriate insight Objective Data Active Medications Acetaminophen (Acetaminophen 325 Mg Tablet) 650 mg PO Q6H PRN PRN Reason: Pain, Mild 1-3,fever,headache Calcium Carbonate (Calcium Carbonate 750 Mg Tab.Chew) 750 mg PO Q4H PRN PRN Reason: Heartburn Magnesium Hydroxide (Milk Of Magnesia 30 Ml Oral.Susp) 30 ml PO DAILY PRN PRN Reason: Constipation Melatonin (Melatonin 3 Mg Tablet) 6 mg PO BEDTIME PRN PRN Reason: Insomnia Omeprazole (Omeprazole 40 Mg Capsule.Dr) 40 mg PO DAILY@0630 [facility] Polyethylene Glycol/Electrolytes (Peg 3350/Na Sulf,Bicarb,Cl/Kcl 4,000 Ml Soln.Recon) 4,000 ml PO ONCE ONE Stop: 11/19/24 18:01 Sodium Chloride (0.9 % Sodium Chloride Flush 3 Ml Syringe) 3 ml IVFLUSH QSHIFT [facility] Last Admin: 11/19/24 07:34 Dose: Not Given Documented By: CARMITA Non-Admin Reason: See Note Labs 11/19/24 05:12 11/19/24 05:12 Labs: Laboratory Results - last 24 hr 11/18/24 11/18/24 11/19/24 17:08 17:54 05:12 MCV 92.4 88.9 MCH 30.4 29.7 MCHC 32.9 33.5 RDW 14.8 15.9 Plt Count 162 165 MPV 11.9 11.2 Immature Gran % (Auto) 0.4 0.4 Neut % (Auto) 55.7 54.5 Lymph % (Auto) 30.8 30.6 [place] % (Auto) 10.2 10.6 Eos % (Auto) 2.4 3.4 Baso % (Auto) 0.5 0.5 Lymph # (Auto) 2.8 2.8 [place] # (Auto) 0.9 1.0 Eos # (Auto) 0.2 0.3 Baso # (Auto) 0.1 0.1 Abs Immat Gran (auto) 0.04 H 0.04 H Absolute Neuts (auto) 5.1 5.0 Absolute Nucleated RBC 0.000 0.000 Nucleated RBC % (auto) 0.0 0.0 PT 11.2 INR 1.0 Anion Gap 12 11 L Estim Creat Clear Calc 75.6 98.2 Estimated GFR > 60 > 60 Random Glucose 157 H 99 Estimat Average Glucose 111 Hemoglobin A1c % 5.5 Calcium 8.1 L 8.3 L Magnesium 2.1 Iron 30 L TIBC 251 % Saturation 12 L Unsat Iron Binding 221 Total Bilirubin 0.1 0.3 AST 29 23 ALT 13 12 Alkaline Phosphatase 64 65 Total Protein 6.0 L 5.9 L Albumin 3.7 3.7 Triglycerides 136 Cholesterol 165 LDL Cholesterol, Calc 110 H HDL Cholesterol 28 L Vitamin B12 303 Folate 12.4 TSH 2.97 Stool Occult Blood NEGATIVE Blood Type O Positive Antibody Screen NEGATIVE Crossmatch See Detail Assessment and Plan (1) GI (gastrointestinal bleed): Status: Acute Plan 66M PMH anemia, arthritis presented with low hemoglobin Acute on chronic anemia Suspected GI bleed Continue ppi, hemoglobin improved appropriately after 1 unit PRBC, monitor CBC, plan for repeat EGD and colonoscopy GI following DVT prophylaxis-mechanical due to GI bleed Full Code reason for continued hospitalization:plan for egd/colonsocpy Quality Stroke Does the patient have a stroke diagnosis?: No VTE Prior VTE?: No VTE Risk Level:: Medical - moderate - high VTE Device Contraindication: Treatment Not Indicated VTE Drug Contraindication: N/A - Med Ordered
[2024-11-19] MEDS: PEG 3350/Na Sulf,Bicarb,Cl/KCL 4,000 ML SOLN.RECON 4000 ML PO (16:50)
--- NOTE | 2024-11-19 17:00 | CA_ITS ---
Transthoracic Echocardiogram Patient (Last, First, Middle): Jos Bosch, Gender: Male Date of : 1960 Age: 64 Procedure Date: 11/19/2024 Procedure Type: Transthoracic Echocardiogram Location: [facility] [place] Height: 167.64 cm Weight: 83.01 kg BSA: 1.93 m2 Heart Rate: bpm BP: 124 / 70 mmHg Engine Lathe Tender: Referring MD: Abelino Vasquez MD Internal Communications Manager: Florentin Barba MD Symptoms: nsvt Study Quality: Adequate ECG Rhythm: Sinus Conclusions: - 1. Normal LV ejection fraction 55-60% with impaired relaxation filling pattern 2. Mildly dilated left atrium 3. Mitral annular calcification with normal cardiac valvular Dopplers 4. Mildly elevated right ventricular systolic pressure 5. No gross pericardial effusion Findings Left Ventricle Normal left ventricular size, thickness, and systolic function. The visually estimated ejection fraction is between 55-60%. Spectral Doppler is indicative of an impaired relaxation filling pattern. E/E prime ratio is between 8 and 15 consistent with indeterminate filling pressures. Right Ventricle Normal right ventricular cavity size and systolic function. Atria The left atrium is mildly dilated. Interatrial shunt cannot be excluded. The right atrium is normal in size. Aortic Valve The aortic valve was not well visualized. There is no aortic valve stenosis. There is no aortic valve regurgitation. Mitral Valve There is mild anterior and moderate posterior mitral leaflet thickening. There is mild mitral annular calcification. There is trace mitral valve regurgitation. There is no mitral valve stenosis. Pulmonic Valve The pulmonic valve was not well visualized. Tricuspid Valve Likely normal tricuspid valve structure and function. There is mild tricuspid valve regurgitation. Normal right atrial pressure. Mild pulmonary hypertension is present. Great Vessels All visible segments of the aorta are normal in size. The pulmonary artery was not well visualized. There is no dilatation of the ascending aorta measuring 3.10 cm. Venous The inferior vena cava is normal in size and collapses greater than 50% with inspiration. Pericardium/Pleural There is no evidence of pericardial effusion. Prior Study Comparison No prior study available for comparison. Measurements 2D Linear Measurements IVSd: 0.92 0.6-0.9/0.6-1.0 cm LVIDd: 5.39 3.9-5.3/4.2-5.9 cm LVIDd Index: 2.79 2.4-3.2/2.2-3.1 cm/m2 LVIDs: 2.90 2.0-3.6 cm LVPWd: 0.81 0.7-1.1 cm Ao Root: 3.40 2.1-3.5 cm LA Diam: 3.80 2.7-3.8/3.0-4.0 cm LAIDs Index: 1.97 1.5-2.3 cm/m2 LV Mass: 211.74 67-162/88-224 g LV Mass Index: 109.71 43-95/49-115 g/m2 LVOT Diam: 2.10 3.0+(-)1.3 cm 2D Systolic Function EF 4C: 56.70 >55% EF 2C: 50.70 >55% EF BiP: 55.80 >55% Mitral Valve MV VTI: 0.49 MV Pk Jose: 1.64 MV Mn Jose: 0.81 MV Pk Grad: 11.00 MV Mn Grad: 3.00 MV Pk E: 0.98 MV PK A: 1.08 MV Decel Time: 220.00 E/A: 0.90 E'Lateral: 9.57 E'Medial: 10.30 E/E' Med: 9.50 E/E' Lat: 10.30 PHT: 64.00 MVA PHT: 3.44 MVA Continuity: 1.89 Decel Barron: 4.46 Aortic Valve AoV Pk Jose: 1.67 AoV Mn Jose: 1.05 AoV VTI: 0.30 AoV Pk Grad: 11.00 Aov Mn Grad: 5.00 PEGGY Cont.VTI: 3.10 LVOT LVOT Pk Jose: 1.24 LVOT Mn Jose: 0.74 LVOT VTI: 0.27 LVOT Pk Grad: 6.00 LVOT Mn Grad: 3.00 LVOT Diam: 2.10 LVOT Area: 3.46 Diastolic Function MV Pk E: 0.98 MV Pk A: 1.08 E/A: 0.90 E'Medial: 10.30 E/E' Med: 9.50 E' Laterial: 9.57 E/E' Lat: 10.30 Tricuspid Valve TR Pk Jose: 3.09 TR Pk Grad: 38.00 RA Press: 3.00 RVSP: 41.00 Great Vessels Aorta Ao Root-2D: 3.40 2.0-3.7 cm Ao Asc: 3.10 2.1-3.4 cm Pulmonary Valve PV Pk Jose: 1.11 Peak PV Grad: 5.00 Updated in Other Vendor System with Status of Final Florentin Barba MD electronically signed on 11/20/2024 10:57:43 AM with status of Final
[2024-11-20] VITALS (7 sets, daily range): BP systolic 92–143; BP diastolic 32–77; PULSE 70–78; RESP 14–18; TEMP 36.1–37.1; O2SAT 92–100
[2024-11-20 06:15] LABS: Hematocrit 28.5 % (42.0-52.0); Hemoglobin 9.5 g/dl (14.0-18.0); Mean Corpuscular HGB Conc 33.3 g/dl (31.0-36.0); Mean Corpuscular Hemoglobin 29.7 pg (27.0-33.0); Mean Corpuscular Volume 89.1 fL (80.0-98.0); NRBC Abs Auto 0.000 X10*3/uL (0.0-0.012); NRBC Pct Auto 0.0 /100WBC (0.0-0.2); Platelet Count 194 X10*3/uL (160-400); Red Blood Count 3.20 X10*6/uL (4.60-5.80); White Blood Count 8.3 X10*3/uL (4.8-10.8)
[2024-11-20 06:41] LABS: Anion Gap 10 (12-20); Blood Urea Nitrogen 10 mg/dL (9-16); Calcium 8.5 mg/dL (8.4-10.2); Carbon Dioxide 27 mmol/L (22-29); Chloride 108 mmol/L (96-108); Creatinine Clr Calc Pharmacy 96.9; Estimated Glomerular Filt Rate > 60; Magnesium 2.3 mg/dL (1.6-2.6); Potassium 4.2 mmol/L (3.3-5.1); Sodium 141 mmol/L (135-145)
--- NOTE | 2024-11-20 10:22 | P.PNIM_ITS ---
Subjective Subjective Date of Service: 11/20/24 Interval History: no complaints Physical Exam 2 Vital Signs: Vital Signs: Last Vital Signs Temp 97.9 F 11/20/24 07:08 Pulse 71 11/20/24 07:08 Resp 18 11/20/24 07:08 BP 120/58 L 11/20/24 07:08 Pulse Ox 98 11/20/24 07:08 O2 Del Method Room Air 11/20/24 07:08 BMI result Body Mass Index 29.7 General: AO X 3, no acute distress Resp: CTA bilateral, no accessory muscles used CVS: S1,S2,RRR GI: soft, non tender, non distended Neuro: motor grossly intact, alert Psych: appropriate affect, appropriate insight Objective Data Active Medications Acetaminophen (Acetaminophen 325 Mg Tablet) 650 mg PO Q6H PRN PRN Reason: Pain, Mild 1-3,fever,headache Calcium Carbonate (Calcium Carbonate 750 Mg Tab.Chew) 750 mg PO Q4H PRN PRN Reason: Heartburn Magnesium Hydroxide (Milk Of Magnesia 30 Ml Oral.Susp) 30 ml PO DAILY PRN PRN Reason: Constipation Melatonin (Melatonin 3 Mg Tablet) 6 mg PO BEDTIME PRN PRN Reason: Insomnia Omeprazole (Omeprazole 40 Mg Capsule.Dr) 40 mg PO DAILY@0630 [facility] Last Admin: 11/20/24 06:06 Dose: Not Given Documented By: OCHOA Non-Admin Reason: NPO Sodium Chloride (0.9 % Sodium Chloride Flush 3 Ml Syringe) 3 ml IVFLUSH QSHIFT [facility] Last Admin: 11/20/24 09:15 Dose: Not Given Documented By: SEBASTIAN Non-Admin Reason: Previously Administered Labs 11/20/24 06:02 11/20/24 06:02 Labs: Laboratory Results - last 24 hr 11/20/24 06:02 MCV 89.1 MCH 29.7 MCHC 33.3 RDW 15.2 Plt Count 194 MPV 10.8 Absolute Nucleated RBC 0.000 Nucleated RBC % (auto) 0.0 Anion Gap 10 L Estim Creat Clear Calc 96.9 Estimated GFR > 60 Random Glucose 96 Calcium 8.5 Magnesium 2.3 Assessment and Plan (1) GI (gastrointestinal bleed): Status: Acute Plan 66M PMH anemia, arthritis presented with low hemoglobin Acute on chronic anemia Suspected GI bleed Continue ppi, hemoglobin improved appropriately after 1 unit PRBC, monitor CBC, plan for repeat Endoscopy today GI following DVT prophylaxis-mechanical due to GI bleed Full Code reason for continued hospitalization:plan for endoscopy Quality Stroke Does the patient have a stroke diagnosis?: No VTE Prior VTE?: No VTE Risk Level:: Medical - moderate - high VTE Device Contraindication: Treatment Not Indicated VTE Drug Contraindication: N/A - Med Ordered
--- NOTE | 2024-11-20 11:01 | MHC.CM.PN ---
Per ROUNDS discussion, Patient is not yet medically cleared for dc (plan for endoscopy); home is the goal and CM will continue to follow.
[2024-11-20] MEDS: Lactated Ringers 1,000 ML 80 ML IVCONT (11:28)
--- NOTE | 2024-11-20 12:03 | P.PNGI_ITS ---
Subjective Subjective Date of Service: 11/20/24 Interval History: no abdominal pain no melena no rectal bleeding feeling better with PRBC Critical Care Time (minutes): 0 Physical Exam 2 Vital Signs: Vital Signs: Last Vital Signs Temp 98.0 F 11/20/24 11:15 Pulse 72 11/20/24 11:15 Resp 14 11/20/24 11:15 BP 136/65 11/20/24 11:15 Pulse Ox 98 11/20/24 11:15 O2 Del Method Room Air 11/20/24 11:15 BMI result Body Mass Index 29.7 EXAM: GENERAL: The patient is well developed and nontoxic. VITAL SIGNS:see workflow HEENT: Nonicteric sclerae, PERRLA, EOMI. Oropharynx clear. Moist mucous membranes. Conjunctivae appear well perfused. No thyroid mass. CHEST: Chest wall is nontender. HEART: Regular rate and rhythm without murmurs. LUNGS: Clear to auscultation bilaterally. ABDOMEN: Soft, positive bowel sounds, nontender, no organomegaly.no flank tenderness SKIN: No rash, no excessive bruising, petechiae, or purpura. NEUROLOGIC: Cranial nerves II-XII intact without motor/sensory deficit. Psych: normal affect Objective Data Labs 11/20/24 06:02 11/20/24 06:02 Labs: Laboratory Results - last 24 hr 11/20/24 06:02 WBC 8.3 RBC 3.20 L Hgb 9.5 L Hct 28.5 L MCV 89.1 MCH 29.7 MCHC 33.3 RDW 15.2 Plt Count 194 MPV 10.8 Absolute Nucleated RBC 0.000 Nucleated RBC % (auto) 0.0 Sodium 141 Potassium 4.2 Chloride 108 Carbon Dioxide 27 Anion Gap 10 L BUN 10 Creatinine 0.78 Estim Creat Clear Calc 96.9 Estimated GFR > 60 Random Glucose 96 Calcium 8.5 Magnesium 2.3 Procedures Date of Service Date of Service: 11/20/24 Progress Note: A&P Assessment and plan (1) Acute upper GI bleed: Status: Acute Assessment and Plan: 1/ Anemia, no overt GI bleeding PLAN: 1/ EGD, and colo today for assessment Time Spent With Patient Time: Total time managing care of this patient today ____ minutes. Quality Stroke Does the patient have a stroke diagnosis?: No VTE Prior VTE?: No VTE Risk Level:: Medical - moderate - high VTE Device Contraindication: Treatment Not Indicated VTE Drug Contraindication: N/A - Med Ordered
--- NOTE | 2024-11-20 12:46 | HO.OPN-COLON ---
Colonoscopy Operative Note Operative Note Date of Service: 11/20/24 Narrative: Operative Information Procedure Description: EGD, Colonoscopy Indication: anemia Anesthesia: MAC FLEXIBLE TRANSORAL UPPER GASTROINTESTINAL ENDOSCOPY AND COLONOSCOPY PROCEDURE NOTE UPPER ENDOSCOPY Consent: Indications for the procedure and potential complications of bleeding, perforation, reaction to medications and missed diagnosis were discussed with the patient and informed consent was obtained. Instrument: Olympus GIF H 190 J mid size upper endoscope Monitoring: Vital signs and clinical assessment, continuous EKG monitoring, Pulse oximetry, Carbon Dioxide monitoring and blood pressure monitoring were done throughout the procedure. Procedure: The patient was placed in the left lateral decubitis position and pre-procedure medications were administered and a bite block was placed. The endoscope was inserted into the mouth and advanced under direct vision to the third part of duodenum. A careful inspection was made as the upper endoscope was withdrawn including a retroflexed examination of the proximal stomach; Findings and interventions are described below. Findings: Larynx:normal Esophagus: GE junction at 38 cm, diaphragm hiatus at 40 cm, consistent with 2 cm sliding hiatal hernia Stomach: mild gastritis . shallow ulcer noted near pylorus about 10 mm, Caas grade III, x 2 clips applied to close the ulcer including a mantis clip. Grade 2 flap valve on retroflexed examination of the cardia. Duodenum: Normal bulb and descending duodenum, Intervention: x 2 clips applied COLONOSCOPY Instrument: Olympus variable stiffness pediatric scope 190L Colonoscopy Monitoring: Vital signs and clinical assessment, continuous EKG monitoring, Pulse oximetry, Carbon Dioxide monitoring and blood pressure monitoring were done throughout the procedure. Colon withdrawal time was 8 minutes. Procedure: The patient was placed in the left lateral decubitis position and pre-procedure medications were administered. After a digital rectal examination of the ano-rectum, the video colonoscope was inserted into the rectum and advanced through the colon to the cecum/TI. The colonoscope was slowly withdrawn in a retrograde panoramic fashion and the colon mucosa was carefully examined including a retroflexed view of the rectum. Findings and interventions are described below. Procedure Difficulty:moderate Findings: No blood seen in lumne Terminal Ileum-normal Cecum:normal Ascending Colon: normal Transverse Colon -normal Descending Colon:normal Sigmoid Colon: moderate diverticulosis Rectum: Retroflexion with small internal hemorrhoids, grade I Anorectum - normal Colon preparation: [place] Bowel Preparation Scale Right colon; 1-2 Transverse colon: 2 Left colon; 2 (0 = Unprepared colon segment with mucosa not seen due to solid stool that cannot be cleared. 1 = Portion of mucosa of the colon segment seen, but other areas of the colon segment not well seen due to staining, residual stool and/or opaque liquid. 2 = Minor amount of residual staining, small fragments of stool and/or opaque liquid, but mucosa of colon segment seen well. 3 = Entire mucosa of colon segment seen well with no residual staining, small fragments of stool or opaque liquid) Impression and Post Procedure Diagnosis: Endoscopy Findings: gastric ulcer hiatal hernia Colonoscopy Findings: diverticulosis internal hemorrhoids Plan: Await Pathology results Repeat Colonoscopy in 3 years or earlier if clinically indicated High fiber diet leaflet avoid straining at stool, epsom salts and sitz bath, anusol supps or cream out patient capsule endoscopy r/o small bowel cause of anemia TREATMENT for H Pylori Above findings were reviewed with the patient and relevant handouts were provided if indicated.
--- NOTE | 2024-11-20 13:20 | P.DS_ITS ---
DS: Providers Provider Date of Service: 11/20/24 Date of admission: 11/19/24 14:13 Date of discharge: 11/20/24 Primary care physician: Td Bautista MD Consults: 11/18/24 20:29 Consult to Gastroenterology Routine Consulting Provider: Katrin Mckeon Reason for consultation: gi bleed DS: Diagnosis Discharge Diagnosis (1) Acute upper GI bleed: Status: Acute DS: Summary Hospital Course Hospital Course: from initial hpi: 66-year-old male with a past medical history of tobacco dependence, arthritis, recent admission to the hospital for anemia secondary to GI bleed; presented to the hospital today with a chief complaint of generalized weakness. Patient was discharged from the hospital on 11/15/2024 after being managed for anemia secondary to GI bleed status post EGD on 11/14/2024 which showed gastric ulcer/hiatal hernia. Patient mentioned that he had routine visit to the PCP for follow-up and had blood work done which showed hemoglobin of 5->asked him to go to the ER for further evaluation. Denies any signs of bleeding. Denies any chest pain or palpitations. Denies any GI symptoms. Review of all other systems is negative except mentioned above ER course: Per ER team, patient's exam was benign; stool guaiac was negative; patient's hemoglobin on discharge was 9.9; hemoglobin on presentation is 7.1. Being ordered for 1 unit of PRBC. hospital course: Patient was admitted for acute on chronic blood loss anemia. Was treated with PPI, given transfusion and hemoglobin improved appropriately and remained stable. Was seen by Gastroenterology who recommended endoscopy and colonoscopy which revealed gastric ulcer nonbleeding, diverticulosis, internal hemorrhoids. Previous EGD pathology returned with positive H pylori. Recommendations were to treat with quadruple therapy and follow up with GI as outpatient may need capsule endoscopy and future further bleeding. Time Attestation Discharge Coordination Time (in mins): 33 Quality: Safe Use of Opioids Does Pt have an Active Cancer Diagnosis on the Problem List?: No Quality: Stroke Does the patient have a stroke diagnosis?: No Physical Exam Vital Signs: Vital Signs: Last Vital Signs Temp 97.9 F 11/20/24 13:05 Pulse 70 11/20/24 13:05 Resp 16 11/20/24 13:05 BP 103/58 L 11/20/24 13:05 Pulse Ox 100 11/20/24 13:05 O2 Del Method Room Air 11/20/24 13:05 BMI result Body Mass Index 29.7 General: AO X 3, no acute distress Resp: CTA bilateral, no accessory muscles used CVS: S1,S2,RRR GI: soft, non tender, non distended Neuro: motor grossly intact, alert Psych: appropriate affect, appropriate insight DS: Data Data Completed and Pending Labs on day of discharge: Laboratory Results - last 24 hr 11/20/24 06:02 WBC 8.3 RBC 3.20 L Hgb 9.5 L Hct 28.5 L MCV 89.1 MCH 29.7 MCHC 33.3 RDW 15.2 Plt Count 194 MPV 10.8 Absolute Nucleated RBC 0.000 Nucleated RBC % (auto) 0.0 Sodium 141 Potassium 4.2 Chloride 108 Carbon Dioxide 27 Anion Gap 10 L BUN 10 Creatinine 0.78 Estim Creat Clear Calc 96.9 Estimated GFR > 60 Random Glucose 96 Calcium 8.5 Magnesium 2.3 Discharge Plan Discharge Anticipated Discharge Date/Time: 11/20/24 13:18 Patient Disposition: Home, Self-Care Discharge Diagnosis: anemia Referrals: Katrin Mckeon MD [Physician, Gastroenterology] - 1 Week Name,MD Td [Primary Care Provider, Internal Medicine] - 1 Week Discharge Medications: New omeprazole 20 mg capsule,delayed release(DR/EC) 20 mg PO BID Qty: 28 0RF tetracycline 500 mg capsule 500 mg PO Q6H Qty: 56 0RF Kaopectate Ex Str (bismuth ss) 525 mg/15 mL suspension 525 mg PO QID 14 Days Qty: 840 0RF metronidazole 500 mg tablet 500 mg PO Q8H 14 Days Qty: 42 0RF Discontinued omeprazole 40 mg capsule,delayed release(DR/EC) 40 mg PO DAILY@0630 Rx Instructions: Take one capsule daily for the next 8 weeks for gastric ulcer Discharge Orders: Discharge Order (Routine); Ordered 11/20/24 Ordered By: Abelino Vasquez Diet: Advance to usual diet Activity on Discharge: As tolerated Stand Alone Forms: Patient Portal Discharge page Print Language: Turkish Care Plan Goals: recovery Health Concerns: hpylori Plan of Treatment: complete h pylori treatment, follow up with gi Assessment: see above
--- NOTE | 2024-11-20 13:22 | MHC.CM.PN ---
Patient has been medically cleared for dc to home today, self care.
== END 2024-11-20 16:00 | disposition home or self-care (01) | DRG 241 ==
LOC: HO.ED 17:42 → HO.EDOVER 20:47 → HO.IMC 11-19 12:15
PROVIDERS: Internal Medicine Gastroenterology; Physician Assistant Medical; Admitting Provider Hospitalist; Emergency Provider Internal Medicine; PCP Internal Medicine Geriatric Medicine; Visit Provider Internal Medicine
PROC: 0W3P8ZZ Control Bleeding in Gastrointestinal Tract, Via Natural or Artificial Opening Endoscopic (ICD-10-PCS; principal; 2024-11-20 12:50)
DX: K25.4 Chronic or unspecified gastric ulcer with hemorrhage (principal); K57.31 Diverticulosis of large intestine without perforation or abscess with bleeding; F17.210 Nicotine dependence, cigarettes, uncomplicated; D62 Acute posthemorrhagic anemia; Z71.6 Tobacco abuse counseling; K64.0 First degree hemorrhoids; Z79.899 Other long term (current) drug therapy
CPT/HCPCS: 36415; 74176; 80048; 80053; 80061; 82272; 82607; 82746; 83036; 83540; 83735; 84443; 85025; 85027; 85610; 86850; 86900; 86901; 86923; 93005; 93306; 99285; J2003; J2470; J2704; J7120; P9016; Q9957

== ENCOUNTER → 2024-11-18 16:45 | Outpatient (BNV) | payer OTHER, SELFPAY | PROVIDERS: Admitting Provider Hospitalist; Emergency Provider Internal Medicine; PCP Internal Medicine Geriatric Medicine; Visit Provider Internal Medicine Cardiovascular Disease | DX: R79.9 Abnormal finding of blood chemistry, unspecified (principal) | CPT/HCPCS: 93010 ==

== ENCOUNTER 2024-11-18 20:24 | Outpatient (BNV) | payer OTHER, SELFPAY | END 2024-11-19 07:23 | PROVIDERS: Admitting Provider Hospitalist; Emergency Provider Internal Medicine; PCP Internal Medicine Geriatric Medicine; Visit Provider Radiology Diagnostic Radiology | DX: J98.11 Atelectasis (principal) | CPT/HCPCS: 74176 ==

== ENCOUNTER → 2024-11-18 20:24 | Outpatient (BNV) | payer OTHER, SELFPAY | PROVIDERS: Admitting Provider Hospitalist; Emergency Provider Internal Medicine; PCP Internal Medicine Geriatric Medicine; Visit Provider Internal Medicine Gastroenterology | DX: K92.2 Gastrointestinal hemorrhage, unspecified (principal); K25.0 Acute gastric ulcer with hemorrhage; K57.30 Diverticulosis of large intestine without perforation or abscess without bleeding; K64.0 First degree hemorrhoids | CPT/HCPCS: 43255; 45378; 99222; 99232 ==

== ENCOUNTER 2024-11-19 14:13 | Outpatient (BNV) | payer OTHER, SELFPAY | END 2024-11-19 17:00 | PROVIDERS: Admitting Provider Hospitalist; Emergency Provider Internal Medicine; PCP Internal Medicine Geriatric Medicine; Visit Provider Internal Medicine Cardiovascular Disease | DX: I27.20 Pulmonary hypertension, unspecified (principal); I34.81 Nonrheumatic mitral (valve) annulus calcification; I36.1 Nonrheumatic tricuspid (valve) insufficiency; I51.89 Other ill-defined heart diseases | CPT/HCPCS: 93306 ==

== ENCOUNTER 2025-01-08 07:53 | Outpatient (AMB) | payer OTHER, SELFPAY ==
--- OUTSIDE RECORDS SUMMARY | 2025-01-08 07:56 | XMS_ITS | Encounter Summary ---
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 No / Unsure 09/27/2022 10:08 AM EDT documented as of this encounter Plan of Treatment Upcoming Encounters Date Type Department Care Team (Late Contact Info) Description 02/20/2025 11:15 AM EDT Office Visit [facility] [address] [place] [address] Name, MD Td [address] [place] [address] documented as of this encounter Visit Diagnoses Not on filedocumented in this encounter Additional Health Concerns Assessment Noted Time PHQ-9 Depression Total Score: 0 09/28/19 23 10:17 AM EDT documented as of this encounter Care Teams Ventilating Engineer Relationship Specialty Start Date End Date Name, [place] [address] PCP - General Family Medicine 01/19/22 documented as of this encounter
--- NOTE | 2025-01-21 14:26 | MHC.OFFVIS ---
Intake Visit Reasons: VCE - Angus - r/s'd from 01/06 Allergies No Known Allergies Allergy (Verified 11/18/24 16:45) PFSH Medical History Hyperlipidemia Nicotine dependence, cigarettes, uncomplicated Surgical History Hx of left knee surgery Hx of colonoscopy Family History Mother Alzheimer disease Colon cancer Social History Household Members: Spouse and Children Housing: House Are you a primary home care administrator to a significant other at home: No Do you presently have visiting nurse or other home services: No Alcohol intake: current Alcohol intake frequency: a few times a week Patient Tobacco Use Status: Current everyday Tobacco user Tobacco use type: Cigarette Cigarette Packs Per Day: 1 Cigarettes Per Day: 15 service: No Office Procedures AMB Capsule Endoscopy Procedure Notes: Capsule Endoscopy: Date of Service:01/08/25 Indication: anemia Findings: esophagus appeared normal, stomach with mild patchy erythema, duodenum entered at 14 mins. Mild bulbar duodenitis noted. Rest of small bowel normal. Cecum entered at 3 hr 55 min. Conclusion: mild gastritis and duodenitis, no active bleeding sites noted. No masses or tumours, ulcers seen. montior clinically, repeat test as needed Capsule Endoscopy CPT Code: 70598 - Capsule Endoscopy Assessment & Plan Assessment & Plan (1) GI (gastrointestinal bleed): Code(s): K92.2 - Gastrointestinal hemorrhage, unspecified Category: Medical Qualifiers: GI bleed type/associated pathology: gastric ulcer Qualified Code(s): K25.4 - Chronic or unspecified gastric ulcer with hemorrhage Plan: as above Coding Level of Care Code Procedure Only Diagnoses Gastrointestinal hemorrhage associated with gastric ulcer K25.4 GI bleed type/associated pathology: gastric ulcer CPT Codes AMB Capsule Endoscopy - Capsule Endoscopy CPT Code: 00813 - Capsule Endoscopy ([id number])
== END 2025-01-08 08:06 | disposition home or self-care (01) ==
LOC: HO.HGI 07:54
PROVIDERS: PCP Internal Medicine Geriatric Medicine; Visit Provider Internal Medicine Gastroenterology
DX: K25.4 Chronic or unspecified gastric ulcer with hemorrhage (principal)
CPT/HCPCS: 91110

== ENCOUNTER → 2025-01-08 07:53 | Outpatient (BNVA) | payer OTHER, SELFPAY | PROVIDERS: PCP Internal Medicine Geriatric Medicine; Visit Provider Internal Medicine Gastroenterology | DX: K25.4 Chronic or unspecified gastric ulcer with hemorrhage (principal) | CPT/HCPCS: 91110 ==